=== PATIENT | male | born 1945 | race Two or more races ===

== ENCOUNTER 2016-08-15 19:14 | Emergency (ER) | payer MEDICARE, OTHER ==
[~2016-08-15] VITALS: Ht 177.8 cm; Wt 86.2 kg
[~2016-08-15 19:14] MED LIST: ACET500T68 PO; ALPR0.254 PO; CEPH-264 PO; CIPR250T30 PO; CIPR500T94 PO; CRAN200C PO; LEVE500T6 PO; NITR100C6 PO; SULF1TAB24 PO; SULF1TAB3 PO; TAMS0.4C97 PO; TOPI25TA32 PO
[2016-08-15 20:41] LABS: BASO % 0 % (0-3); EOS % 0 % (0-3); HEMATOCRIT 37.2 % (39.0-53.0); HEMOGLOBIN 12.2 g/dL (13.0-17.5); LYMPH # 1.9 x10^3/uL (1.0-4.8); LYMPH % 33 % (24-48); MEAN CORPUSCULAR HEMOGLOBIN 29 pg (25-35); MEAN CORPUSCULAR HGB CONC 33 g/dL (31-37); MEAN CORPUSCULAR VOLUME 88 fL (79-100); MONO % 8 % (0-9); NEUT % 59 % (31-73); PLATELET COUNT 136 x10^3/uL (140-400); RED BLOOD COUNT 4.24 x10^6/uL (4.30-5.70); RED CELL DISTRIBUTION WIDTH 15.2 % (11.5-14.5); WHITE BLOOD COUNT 5.8 x10^3/uL (4.0-11.0)
[2016-08-15 20:49] LABS: PROTHROMBIN TIME PATIENT 12.4 SEC (11.7-14.0)
--- NOTE | 2016-08-15 21:15 | RAD ---
PROCEDURE CT head without contrast. HISTORY Altered mental status. History of stroke. TECHNIQUE Helical CT imaging of the brain is performed without IV contrast. PQRS: One or more the following individualized dose reduction techniques were utilized for the study: 1. Automated exposure control. 2. Adjustment of the mA and/or kV according to patient size. 3. Use of iterative reconstruction technique. COMPARISON CT head without contrast, February 15, 2015. FINDINGS There is no midline shift or mass effect. No extra-axial fluid collection or intraparenchymal hemorrhage. Singleton-white matter differentiation is preserved. The ventricles and sulci are prominent, consistent with age-related cerebral atrophy. There is periventricular white matter hypoattenuation, nonspecific but commonly due to chronic small vessel ischemic disease in a patient of this age. There is cerebellar atrophy. The visualized paranasal sinuses and mastoid air cells are clear. The globes and orbits appear intact. No acute calvarial abnormality. IMPRESSION No acute intracranial abnormality. Electronically signed by: Esvin Snow MD (Aug 15, 2016 21:13:13)
[2016-08-15 21:47] LABS: CALCIUM 8.3 mg/dL (8.5-10.1); GFR 73.9; POTASSIUM 3.5 mmol/L (3.5-5.1)
[2016-08-15 21:52] LABS: ALBUMIN 3.4 g/dL (3.4-5.0); ALBUMIN/GLOBULIN RATIO 1.1 (1.0-1.7); TOTAL BILIRUBIN 0.5 mg/dL (0.2-1.0); TOTAL PROTEIN 6.6 g/dL (6.4-8.2)
--- NOTE | 2016-08-15 22:18 | ACF ---
Admission Forms Criteria SEIZURE Clinical Indications for Admission to Inpatient Care (Place 'X' for any and all applicable criteria): Admission is indicated for seizure and ANY ONE of the following(1)(2)(3)(4)(5): [X]I. Inpatient admission required rather than observation care (Also use Seizure: Observation Care Criteria as appropriate) because of ANY ONE of the following: [ ]a) Altered mental status that is severe or persistent [ ]b) New focal neurologic deficit that is severe or persistent [ ]c) Metabolic disorder (eg, hypoglycemia, hyponatremia) that is severe or persistent [X]d) Recurrent seizure [ ]e) Outpatient antiseizure regimen cannot be established (eg , patient cannot tolerate medication, initiation requires inpatient care) [ ]f) Need for ongoing intravenous infusion of antiseizure medication [ ]g) Cardiac arrhythmias of immediate concern [ ]h) Cerebral bleeding, hydrocephalus, or vasospasm monitoring (14) [ ]i) Increased intracranial pressure or cerebral edema monitoring (15) [ ]j) Other treatment or monitoring requiring inpatient admission [ ]II. Status epilepticus [A] or repetitive seizures not controlled with emergent treatment (6)(8) [ ]III. Brain disorder (eg, tumor, edema, and hydrocephalus) that requiring monitoring or intervention available only at inpatient level of care. [ ]IV. Brain insult (eg, severe trauma, stroke, drug toxicity, or withdrawal) that requires monitoring or intervention available only at inpatient level of care (10)(11) Extended stay beyond goal length of stay may be needed for (22) [ ]a) Complications of status epilepticus [ ]b) Refractory status epilepticus [ ]c) Etiology-specific therapy for conditions such as VERIFYING SPECIALIST infection, head injury,eclampsia, severe metabolic abnormalities, and brain tumor [ ]d) Residual neurologic damage, [ ]e) Initiation of significant change to anticonvulsant treatment [ ]f) Older patients (65 years or older) [ ]g) Patient requiring intubation (eg, to protect airway) The original [employer] content created by [employer] has been revised. The portions of the content which have been revised are identified through the use of italic text or in bold, and [facility] [employer] has neither reviewed nor approved the modified material. All other unmodified content is copyright [facility] [employer]. Please see references footnoted in the original [facility] edition 2016 Admission Criteria Met?: Yes COREY DAVILA Aug 15, 2016 22:18
[2016-08-15 22:54] VITALS: BP 180/84
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
--- NOTE | 2016-08-15 23:04 | EKG ---
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
== END 2016-08-15 23:15 | disposition home or self-care (01) ==
LOC: ER 19:14
DX: F41.9 Anxiety disorder, unspecified (principal); F03.90 Unspecified dementia, unspecified severity, without behavioral disturbance, psychotic disturbance, mood disturbance, and anxiety; Z86.73 Personal history of transient ischemic attack (TIA), and cerebral infarction without residual deficits; Z91.041 Radiographic dye allergy status
CPT/HCPCS: 36415; 70450; 80053; 85027; 85610; 93005; 99285-25

== ENCOUNTER 2016-09-23 17:39 | Emergency (ER) | payer MEDICARE, OTHER ==
[2016-09-23] MEDS ORDERED: IV NORMAL SALINE 500ML BAG 500 ML IV ONE (18:45)
[2016-09-23] MEDS ORDERED: MECLIZINE HCL 12.5 MG TABLET. PO ONE (18:45)
[2016-09-23 18:54] LABS: BASO % 1 % (0-3); EOS % 0 % (0-3); HEMATOCRIT 36.4 % (39.0-53.0); HEMOGLOBIN 12.1 g/dL (13.0-17.5); LYMPH # 1.5 x10^3/uL (1.0-4.8); LYMPH % 28 % (24-48); MEAN CORPUSCULAR HEMOGLOBIN 29 pg (25-35); MEAN CORPUSCULAR HGB CONC 33 g/dL (31-37); MEAN CORPUSCULAR VOLUME 88 fL (79-100); MONO % 10 % (0-9); NEUT % 62 % (31-73); PLATELET COUNT 97 x10^3/uL (140-400); RED BLOOD COUNT 4.13 x10^6/uL (4.30-5.70); WHITE BLOOD COUNT 5.3 x10^3/uL (4.0-11.0)
[2016-09-23 19:08] LABS: CALCIUM 8.7 mg/dL (8.5-10.1); CREATININE 0.9 mg/dL (0.7-1.3); GFR 83.4; POTASSIUM 3.7 mmol/L (3.5-5.1)
--- NOTE | 2016-09-23 19:25 | RAD ---
PROCEDURE CT head without contrast dated 09/23/2016. HISTORY Dizziness tonite. History of stroke. TECHNIQUE Contiguous axial imaging of the head was performed from skull base to vertex. No contrast administered.Exposure: One or more of the following individualized dose reduction techniques were utilized for this exam: 1. Automated exposure control. 2. Adjustment of the mA and/or kV according to patient size. 3. Use of iterative reconstruction technique. COMPARISON 08/15/2016. FINDINGS Ventricles and sulci mildly prominent for age. No midline shift or mass effect. Mild patchy low density in the deep/subcortical periventricular white matter. No hemorrhage or extra-axial collection. Severe cerebellar atrophy, unchanged. Visualized. Mild mucosal thickening bilateral ethmoid air cells and right maxillary sinus. Visualized paranasal sinuses and mastoid air cells are otherwise clear. No acute calvarial abnormality. IMPRESSION - No evidence of acute intracranial hemorrhage or mass. - Mild to moderate chronic small vessel ischemic changes and atrophy. - Moderate to severe cerebellar atrophy. - Mild sinus disease. Electronically signed by: Luiz Marsh (September 23, 2016 19:24:05)
[2016-09-23 20:12] VITALS: BP 179/84
[2016-09-23] MEDS ORDERED: MECL25TA3 PO (20:18)
--- NOTE | 2016-09-23 20:18 | PHYS DOC ---
Past Medical History Past Medical History: CVA, Dementia, Seizure, Stroke, Other Additional Past Medical Histor: RIGHT SIDE DEFICITS R/T CVA Past Surgical History: Appendectomy, Cholecystectomy, Tonsillectomy, Other Additional Past Surgical Histo: PEG TUBE Alcohol Use: None Drug Use: None Adult General Chief Complaint Chief Complaint: DIZZY/LIGHT HEADED HPI HPI Patient is a 71 year old male with chronic right hemiparalysis who presents with female significant other for intermittent dizziness that started this afternoon after sitting outside for most of the day. It happens when he changes positions. He denies headache, vision changes, numbness, tingling, weakness. Feels abnormal spinning sensation. Denies ear pain, tinnitus, n/v, f/ c, trauma, chest pain, dyspnea, abdominal pain. Review of Systems Review of Systems Constitutional: Denies fever or chills [] Eyes: Denies change in visual acuity, redness, or eye pain [] HENT: Denies nasal congestion or sore throat [] Respiratory: Denies cough or shortness of breath [] Cardiovascular: No additional information not addressed in HPI [] GI: Denies abdominal pain, nausea, vomiting, bloody stools or diarrhea [] : Denies dysuria or hematuria [] Musculoskeletal: Denies back pain or joint pain [] Integument: Denies rash or skin lesions [] Neurologic: Denies headache, focal weakness or sensory changes [] Endocrine: Denies polyuria or polydipsia [] Current Medications Current Medications Current Medications Medications (Trade) Dose Ordered Sig/Mackenzie Start Time Stop Time Status Last Admin Dose Admin Acetaminophen (Tylenol) 500 mg 1X ONCE 09/23/16 20:30 09/23/16 20:31 DC Meclizine HCl (Antivert) 25 mg 1X ONCE 09/23/16 18:45 09/23/16 18:46 DC 09/23/16 19:15 25 MG Sodium Chloride 500 ml @ 500 mls/hr 1X ONCE 09/23/16 18:45 09/23/16 19:44 DC 09/23/16 19:18 500 MLS/HR Allergies Allergies Allergies Coded Allergies Type Severity Reaction Last Updated Verified iodine Allergy Severe IV IODINE CAUSED A SEIZURE 02/01/16 Yes Physical Exam Physical Exam Constitutional: Well developed, well nourished, no acute distress, non-toxic appearance. [] HENT: Normocephalic, atraumatic, bilateral external ears normal, oropharynx moist, nose normal. [] Eyes: PERRLA, EOMI. [] Neck: Normal range of motion, supple. [] Cardiovascular: Heart rate regular rhythm [] Lungs & Thorax: Bilateral breath sounds clear to auscultation [] Abdomen: Bowel sounds normal, soft, no tenderness. [] Skin: Warm, dry, no erythema, no rash. [] Back: Normal ROM. [] Extremities: No tenderness, ROM intact, no edema. [] Neurologic: Alert and oriented X 3, normal sensory function, right hemiparesis, no nystagmus. [] Psychologic: Affect normal, judgement normal, mood normal. [] Current Patient Data Vital Signs Vital Signs Date Time Temp Pulse Resp B/P (MAP) Pulse Ox O2 Delivery O2 Flow Rate FiO2 09/23/16 20:12 44 17 179/84 (115) 98 Room Air 09/23/16 17:39 98.4 98.4 Lab Values Laboratory Tests Test 09/23/16 18:40 White Blood Count 5.3 x10^3/uL (4.0-11.0) Red Blood Count 4.13 x10^6/uL (4.30-5.70) L Hemoglobin 12.1 g/dL (13.0-17.5) L Hematocrit 36.4 % (39.0-53.0) L Mean Corpuscular Volume 88 fL (79-100) Mean Corpuscular Hemoglobin 29 pg (25-35) Mean Corpuscular Hemoglobin Concent 33 g/dL (31-37) Red Cell Distribution Width 15.0 % (11.5-14.5) H Platelet Count 97 x10^3/uL (140-400) L Neutrophils (%) (Auto) 62 % (31-73) Lymphocytes (%) (Auto) 28 % (24-48) Monocytes (%) (Auto) 10 % (0-9) H Eosinophils (%) (Auto) 0 % (0-3) Basophils (%) (Auto) 1 % (0-3) Neutrophils # (Auto) 3.3 x10^3uL (1.8-7.7) Lymphocytes # (Auto) 1.5 x10^3/uL (1.0-4.8) Monocytes # (Auto) 0.5 x10^3/uL (0.0-1.1) Eosinophils # (Auto) 0.0 x10^3/uL (0.0-0.7) Basophils # (Auto) 0.0 x10^3/uL (0.0-0.2) Sodium Level 142 mmol/L (136-145) Potassium Level 3.7 mmol/L (3.5-5.1) Chloride Level 104 mmol/L (98-107) Carbon Dioxide Level 32 mmol/L (21-32) Anion Gap 6 (6-14) Blood Urea Nitrogen 15 mg/dL (8-26) Creatinine 0.9 mg/dL (0.7-1.3) Estimated GFR (Cockcroft-Gault) 83.4 Glucose Level 90 mg/dL (70-99) Calcium Level 8.7 mg/dL (8.5-10.1) Laboratory Tests 09/23/16 18:40 Laboratory Tests 09/23/16 18:40 EKG EKG EKG as interpreted by me as sinus rhythm with right bundle branch block, rate 46 , no ectopy Radiology/Procedures Radiology/Procedures Head CT without contrast IMPRESSION - No evidence of acute intracranial hemorrhage or mass. - Mild to moderate chronic small vessel ischemic changes and atrophy. - Moderate to severe cerebellar atrophy. - Mild sinus disease. Electronically signed by: Luiz Marsh (September 23, 2016 19:24:05) Course & Med Decision Making Course & Med Decision Making Pertinent Labs and Imaging studies reviewed. (See chart for details) Workup is unremarkable. His symptoms are resolved after medications. Return precautions given. He and family understand and agree with plan. Dragon Disclaimer Dragguadalupe Disclaimer This electronic medical record was generated, in whole or in part, using a voice recognition dictation system. Departure Departure Impression: Primary Impression: Dizziness Disposition: 01 HOME, SELF-CARE Condition: STABLE Referrals: LUIZ OBREGON MD (PCP) Patient Instructions: Dizziness, [id number] Additional Instructions: Drink liquids to stay hydrated. Take meclizine as needed for dizziness. Follow- up with your primary care doctor and neurology clinic within one week. Please call for appointments. Return for any concerns. Scripts Meclizine Hcl (MECLIZINE HCL) 25 Mg Tablet 1 TAB PO PRN TID Y for DIZZINESS, #10 TAB Prov: Iraida HANNA MD 09/23/16 Iraida HANNA MD September 23, 2016 20:18
[2016-09-23] MEDS ORDERED: ACETAMINOPHEN 500 MG TABLET PO ONE (20:30)
--- NOTE | 2016-09-24 10:05 | EKG ---
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
== END 2016-09-23 20:35 | disposition home or self-care (01) ==
LOC: ER 20:23
DX: R42 Dizziness and giddiness (principal); F03.90 Unspecified dementia, unspecified severity, without behavioral disturbance, psychotic disturbance, mood disturbance, and anxiety; Z86.73 Personal history of transient ischemic attack (TIA), and cerebral infarction without residual deficits; Z91.041 Radiographic dye allergy status
CPT/HCPCS: 36415; 70450; 80048; 85027; 93005; 96360; 99285; J7040; J8597

== ENCOUNTER 2016-09-25 17:08 | Emergency (ER) | payer MEDICARE, OTHER ==
[~2016-09-25] VITALS: Ht 175.3 cm; Wt 86.2 kg
[~2016-09-25 17:08] MED LIST changes: -CRAN200C PO; +CRAN200C2 PO; +MECL25TA3 PO; +SULF-143 PO; -SULF1TAB3 PO; -TOPI25TA32 PO; +TOPI25TA52 PO
--- NOTE | 2016-09-25 17:53 | PHYS DOC ---
Past Medical History Past Medical History: CVA, Dementia, Seizure, Stroke, Other Additional Past Medical Histor: RIGHT SIDE DEFICITS R/T CVA Past Surgical History: Appendectomy, Cholecystectomy, Tonsillectomy, Other Additional Past Surgical Histo: PEG TUBE s/p removal Alcohol Use: None Drug Use: None Adult General Chief Complaint Chief Complaint: OTHER COMPLAINTS [facility] HPI Patient is a 71 year old male who presents by EMS with for agitation. He went to sit next to the street, but family told him "no". He then became agitated and started trying to throw himself out of his wheelchair. notes he actually just slid out of his wheelchair to the ground and did not appear to have hurt himself. He was on the ground and did not let them help him up, so EMS was called. He has now called down. She does note he had a small blood smear on his adult diaper and will like his urine checked for infection. He has no complaints at this time. Otherwise states dizziness is resolved from prior visit. Review of Systems Review of Systems Constitutional: Denies fever or chills [] Eyes: Denies change in visual acuity, redness, or eye pain [] HENT: Denies nasal congestion or sore throat [] Respiratory: Denies cough or shortness of breath [] Cardiovascular: No additional information not addressed in HPI [] GI: Denies abdominal pain, nausea, vomiting, bloody stools or diarrhea [] : Denies dysuria or hematuria [] Musculoskeletal: Denies back pain or joint pain [] Integument: Denies rash or skin lesions [] Neurologic: Denies headache, focal weakness or sensory changes [] Endocrine: Denies polyuria or polydipsia [] Allergies Allergies Allergies Coded Allergies Type Severity Reaction Last Updated Verified iodine Allergy Severe IV IODINE CAUSED A SEIZURE 02/01/16 Yes Physical Exam Physical Exam Constitutional: Well developed, well nourished, no acute distress, non-toxic appearance. [] HENT: Normocephalic, atraumatic, bilateral external ears normal, oropharynx moist, no oral exudates, nose normal. [] Eyes: PERRLA, EOMI. [] Neck: Normal range of motion, supple. [] Cardiovascular:Heart rate regular rhythm [] Lungs & Thorax: Bilateral breath sounds clear to auscultation. No chest wall tenderness [] Abdomen: Bowel sounds normal, soft, no tenderness. [] Skin: Warm, dry, no erythema, no rash. [] Back: No tenderness, no CVA tenderness. [] Extremities: No tenderness, no deformity. [] Neurologic: Alert and oriented to self and situation, chronic right sided hemiparalysis. [] Psychologic: Affect normal, judgement normal, mood normal. [] Current Patient Data Vital Signs Vital Signs Date Time Temp Pulse Resp B/P (MAP) Pulse Ox O2 Delivery O2 Flow Rate FiO2 09/25/16 17:10 97.3 56 18 138/66 (90) 97 Room Air 97.3 Lab Values Laboratory Tests Test 09/25/16 18:10 Urine Collection Type Unknown Urine Color Yellow Urine Clarity Clear Urine pH 6.5 Urine Specific [place] <=1.005 Urine Protein Negative mg/dL (NEG-TRACE) Urine Glucose (UA) Negative mg/dL (NEG) Urine Ketones (Stick) Negative mg/dL (NEG) Urine Blood Moderate (NEG) Urine Nitrite Positive (NEG) Urine Bilirubin Negative (NEG) Urine Urobilinogen Dipstick 0.2 mg/dL (0.2 mg/dL) Urine Leukocyte Esterase Large (NEG) Urine RBC 1-2 /HPF (0-2) Urine WBC 11-20 /HPF (0-4) Urine Squamous Epithelial Cells Occ /LPF Urine Bacteria Moderate /HPF (0-FEW) Course & Med Decision Making Course & Med Decision Making Pertinent Labs and Imaging studies reviewed. (See chart for details) Urine consistent with UTI. Will treat. Otherwise, he has no signs of agitation here. comfortable taking him home. Return precautions given. She understands and agrees with plan. Dragon Disclaimer Dragon Disclaimer This electronic medical record was generated, in whole or in part, using a voice recognition dictation system. Departure Departure Impression: Primary Impression: Agitation Additional Impression: UTI (lower urinary tract infection) Disposition: 01 HOME, SELF-CARE Condition: STABLE Referrals: JH OBREGON MD (PCP) Patient Instructions: Urinary Tract Infection, [id number] Additional Instructions: Take ciprofloxacin as prescribed. Otherwise continue your current medications. Follow-up with your primary care doctor within one week. Return for any concerns. Scripts Ciprofloxacin Hcl (CIPROFLOXACIN HCL) 500 Mg Tablet 1 TAB PO BID, #14 TAB Prov: Iraida HANNA MD 09/25/16 Problem Qualifiers Iraida HANNA MD September 25, 2016 17:53
[2016-09-25 19:06] LABS: BILIRUBIN,URINE NEGATIVE (NEG); GLUCOSE,URINE NEGATIVE (NEG); NITRITE,URINE POSITIVE (NEG); PH,URINE 6.5; PROTEIN,URINE NEGATIVE (NEG-TRACE); UROBILINOGEN,URINE 0.2 mg/dL (0.2 mg/dL)
[2016-09-25 19:33] LABS: BACTERIA,URINE MODERATE /HPF (0-FEW); SQUAMOUS EPITHELIAL CELL,UR OCC /LPF
[2016-09-25] MEDS ORDERED: CIPR500T PO (19:40)
[2016-09-25 19:42] VITALS: BP 192/84
== END 2016-09-25 19:55 | disposition home or self-care (01) ==
LOC: ER 17:58
DX: R45.1 Restlessness and agitation (principal); N39.0 Urinary tract infection, site not specified; F03.90 Unspecified dementia, unspecified severity, without behavioral disturbance, psychotic disturbance, mood disturbance, and anxiety; Z86.73 Personal history of transient ischemic attack (TIA), and cerebral infarction without residual deficits; Z88.8 Allergy status to other drugs, medicaments and biological substances
CPT/HCPCS: 81001; 87086; 87186; 99284; P9612

== ENCOUNTER 2016-11-12 15:25 | Inpatient (IN) | payer MEDICARE, OTHER ==
[~2016-11-12] VITALS: Ht 172.7 cm; Wt 118.8 kg
[~2016-11-12 15:25] MED LIST changes: +CIPR500T PO
[2016-11-12] MEDS ORDERED: IV NORMAL SALINE 1000ML BAG 1,000 ML IV SCH (15:54)
[2016-11-12] MEDS ORDERED: IV NORMAL SALINE 500ML BAG 500 ML IV ONE (16:00)
[2016-11-12 16:34] LABS: BASO % 0 % (0-3); EOS % 0 % (0-3); HEMATOCRIT 36.9 % (39.0-53.0); HEMOGLOBIN 12.2 g/dL (13.0-17.5); LYMPH # 1.3 x10^3/uL (1.0-4.8); LYMPH % 29 % (24-48); MEAN CORPUSCULAR HEMOGLOBIN 29 pg (25-35); MEAN CORPUSCULAR HGB CONC 33 g/dL (31-37); MEAN CORPUSCULAR VOLUME 88 fL (79-100); MONO % 9 % (0-9); NEUT % 62 % (31-73); PLATELET COUNT 90 x10^3/uL (140-400); RED BLOOD COUNT 4.21 x10^6/uL (4.30-5.70); RED CELL DISTRIBUTION WIDTH 14.5 % (11.5-14.5); WHITE BLOOD COUNT 4.6 x10^3/uL (4.0-11.0)
[2016-11-12 16:48] LABS: CALCIUM 9.1 mg/dL (8.5-10.1); CREATININE 0.8 mg/dL (0.7-1.3); GFR 95.6; POTASSIUM 4.2 mmol/L (3.5-5.1)
[2016-11-12 16:54] LABS: ALBUMIN 3.5 g/dL (3.4-5.0); ALBUMIN/GLOBULIN RATIO 1.1 (1.0-1.7); TOTAL BILIRUBIN 0.5 mg/dL (0.2-1.0); TOTAL PROTEIN 6.8 g/dL (6.4-8.2)
[2016-11-12 17:07] LABS: BILIRUBIN,URINE NEGATIVE (NEG); GLUCOSE,URINE NEGATIVE (NEG); NITRITE,URINE POSITIVE (NEG); PH,URINE 6.5; PROTEIN,URINE NEGATIVE (NEG-TRACE); UROBILINOGEN,URINE 0.2 mg/dL (0.2 mg/dL)
[2016-11-12 17:18] LABS: BACTERIA,URINE MANY /HPF (0-FEW); WBC,URINE TNTC /HPF (0-4)
--- NOTE | 2016-11-12 17:33 | RAD ---
CT head without contrast HISTORY: Altered mental status, confusion. COMPARISON: CT head September 23, 2016. TECHNIQUE: [address] imaging skull base to vertex. FINDINGS: Marked cerebellar atrophy with lesser atrophy of the midbrain, yolanda of brainstem similar to the prior exam can be observed with chronic alcohol abuse, chronic antiepileptic therapy, or some neurodegenerative disorders. There is mild asymmetric enlargement of the frontal horns relative to the rest of the lateral and third ventricles this could be ex vacuo dilation of the frontal horns from preferential frontal lobe atrophy, similar to the prior exam. No obstructive hydrocephalus. No intracranial hemorrhage. No mass. No infarction. No acute ischemic changes evident. Orbits, paranasal sinuses, mastoids and bones are unremarkable. IMPRESSION: No acute intracranial CT abnormality. Stable exam as described above. Exposure: One or more of the following individualized dose reduction techniques were utilized for this examination: 1. Automated exposure control 2. Adjustment of the mA and/or kV according to patient size 3. Use of iterative reconstruction technique Electronically signed by: Jesus Alberto Amaya MD (11/12/2016 5:29 PM) [facility]
--- NOTE | 2016-11-12 17:40 | PHYS DOC ---
Past Medical History Past Medical History: CVA, Dementia, Seizure, Stroke, Other Additional Past Medical Histor: RIGHT SIDE DEFICITS R/T CVA Past Surgical History: Appendectomy, Cholecystectomy, Tonsillectomy, Other Additional Past Surgical Histo: PEG TUBE s/p removal Alcohol Use: None Drug Use: None Adult General Chief Complaint Chief Complaint: OTHER COMPLAINTS HPI HPI 71-year-old male with a history of prior severe stroke with right-sided hemiparesis as a residual deficit as well as significant challenge with his speech as his new baseline poststroke. Patient now brought in by for evaluation of confusion after being outside in the heat today. Patient does have Alzheimer's disease in addition to his previous severe stroke. states is not unusual for him to have episodes of confusion and he had one after being out in the sun today. He has now returned to his mental status baseline and has no complaints. He is alert and communicative as he typically is by her description. No fevers chills sweats or shaking chills. No vomiting or diarrhea. Patient is alert and cooperative at his baseline per . She was concerned so she brought him in to get checked out Review of Systems Review of Systems Constitutional: Denies fever or chills [] Eyes: Denies change in visual acuity, redness, or eye pain [] HENT: Denies nasal congestion or sore throat [] Respiratory: Denies cough or shortness of breath [] Cardiovascular: No additional information not addressed in HPI [] GI: Denies abdominal pain, nausea, vomiting, bloody stools or diarrhea [] : Denies dysuria or hematuria [] Musculoskeletal: Denies back pain or joint pain [] Integument: Denies rash or skin lesions [] Neurologic: Denies headache, focal weakness or sensory changes [] Endocrine: Denies polyuria or polydipsia [] Current Medications Current Medications Current Medications Medications (Trade) Dose Ordered Sig/Mackenzie Start Time Stop Time Status Last Admin Dose Admin Ceftriaxone Sodium 50 ml @ As Directed STK-MED ONCE 11/12/16 19:38 11/12/16 19:39 DC Sodium Chloride 500 ml @ 500 mls/hr 1X ONCE 11/12/16 16:00 11/12/16 16:59 DC 11/12/16 16:24 500 MLS/HR Allergies Allergies Allergies Coded Allergies Type Severity Reaction Last Updated Verified iodine Allergy Severe IV IODINE CAUSED A SEIZURE 02/01/16 Yes Physical Exam Physical Exam Elderly chronically weak-appearing male in no acute distress alert and communicative with dysarthria which is baseline per . He is cooperative with formal neurologic exam and has severe weakness of the right upper and right lower extremity consistent with his katherine-paresis baseline. Supple neck clear lungs regular rate and rhythm benign abdomen no rashes. Constitutional: Well developed, well nourished, no acute distress, non-toxic appearance. [] HENT: Normocephalic, atraumatic, bilateral external ears normal, oropharynx moist, no oral exudates, nose normal. [] Eyes: PERRLA, EOMI, conjunctiva normal, no discharge. [] Neck: Normal range of motion, no tenderness, supple, no stridor. [] Cardiovascular:Heart rate regular rhythm, no murmur [] Lungs & Thorax: Bilateral breath sounds clear to auscultation [] Abdomen: Bowel sounds normal, soft, no tenderness, no masses, no pulsatile masses. [] Skin: Warm, dry, no erythema, no rash. [] Back: No tenderness, no CVA tenderness. [] Extremities: No tenderness, no cyanosis, no clubbing, ROM intact, no edema. [] Neurologic: Alert and oriented with mild confusion, baseline per left side with normal motor function right sided weakness baseline unchanged per as mentioned above, normal sensory function Psychologic: Affect normal, judgement normal, mood normal. [] Current Patient Data Vital Signs Vital Signs Date Time Temp Pulse Resp B/P (MAP) Pulse Ox O2 Delivery O2 Flow Rate FiO2 11/12/16 19:30 47 226/98 (140) 97 11/12/16 16:28 14 11/12/16 15:25 98.1 Room Air 98.1 Lab Values Laboratory Tests Test 11/12/16 16:28 11/12/16 16:44 White Blood Count 4.6 x10^3/uL (4.0-11.0) Red Blood Count 4.21 x10^6/uL (4.30-5.70) L Hemoglobin 12.2 g/dL (13.0-17.5) L Hematocrit 36.9 % (39.0-53.0) L Mean Corpuscular Volume 88 fL (79-100) Mean Corpuscular Hemoglobin 29 pg (25-35) Mean Corpuscular Hemoglobin Concent 33 g/dL (31-37) Red Cell Distribution Width 14.5 % (11.5-14.5) Platelet Count 90 x10^3/uL (140-400) L Neutrophils (%) (Auto) 62 % (31-73) Lymphocytes (%) (Auto) 29 % (24-48) Monocytes (%) (Auto) 9 % (0-9) Eosinophils (%) (Auto) 0 % (0-3) Basophils (%) (Auto) 0 % (0-3) Neutrophils # (Auto) 2.9 x10^3uL (1.8-7.7) Lymphocytes # (Auto) 1.3 x10^3/uL (1.0-4.8) Monocytes # (Auto) 0.4 x10^3/uL (0.0-1.1) Eosinophils # (Auto) 0.0 x10^3/uL (0.0-0.7) Basophils # (Auto) 0.0 x10^3/uL (0.0-0.2) Sodium Level 143 mmol/L (136-145) Potassium Level 4.2 mmol/L (3.5-5.1) Chloride Level 105 mmol/L (98-107) Carbon Dioxide Level 33 mmol/L (21-32) H Anion Gap 5 (6-14) L Blood Urea Nitrogen 16 mg/dL (8-26) Creatinine 0.8 mg/dL (0.7-1.3) Estimated GFR (Cockcroft-Gault) 95.6 BUN/Creatinine Ratio 20 (6-20) Glucose Level 94 mg/dL (70-99) Calcium Level 9.1 mg/dL (8.5-10.1) Total Bilirubin 0.5 mg/dL (0.2-1.0) Aspartate Amino Transferase (AST) 21 U/L (15-37) Alanine Aminotransferase (ALT) 27 U/L (16-63) Alkaline Phosphatase 74 U/L (46-116) Troponin I Quantitative < 0.017 ng/mL (0.000-0.055) Total Protein 6.8 g/dL (6.4-8.2) Albumin 3.5 g/dL (3.4-5.0) Albumin/Globulin Ratio 1.1 (1.0-1.7) Thyroid Stimulating Hormone (TSH) 1.586 uIU/mL (0.358-3.74) Urine Collection Type Unknown Urine Color Yellow Urine Clarity Clear Urine pH 6.5 Urine Specific [place] <=1.005 Urine Protein Negative mg/dL (NEG-TRACE) Urine Glucose (UA) Negative mg/dL (NEG) Urine Ketones (Stick) Negative mg/dL (NEG) Urine Blood Small (NEG) Urine Nitrite Positive (NEG) Urine Bilirubin Negative (NEG) Urine Urobilinogen Dipstick 0.2 mg/dL (0.2 mg/dL) Urine Leukocyte Esterase Large (NEG) Urine RBC 3-5 /HPF (0-2) Urine WBC Tntc /HPF (0-4) Urine Bacteria Many /HPF (0-FEW) Laboratory Tests 11/12/16 16:28 Laboratory Tests 11/12/16 16:28 Microbiology 11/12/16 Urine Culture - Preliminary, Resulted 11/12/16 Urine Culture Result 1 (PETER) - Preliminary, Resulted EKG EKG EKG with normal sinus rhythm at 46 bpm normal axis no STEMI right bundle branch block [] Radiology/Procedures Radiology/Procedures Chest x-ray chronic changes no acute disease interpreted by me CT of the head unremarkable report reviewed Course & Med Decision Making Course & Med Decision Making Pertinent Labs and Imaging studies reviewed. (See chart for details) Signs and symptoms consistent with exacerbation of dementia in an elderly debilitated patient with a baseline of hemiparesis and dysarthria. He has returned to his baseline clinically per . Full workup pending to rule out contributory etiology Chest x-ray and CT of the head unremarkable. Urinalysis consistent with infection. Remainder of labs unremarkable. Rocephin given in ED.Patient had bradycardia at 46 on EKG and remains significantly bradycardic in the 40s on multiple reevaluation. He is asymptomatic at rest but will admit patient medical telemetry bed inpatient status for cardiac workup of presumed symptomatic bradycardia. Case discussed with Dr. Luiz Razo who is aware of history and findings and agrees with inpatient admission to a telemetry bed. Critical care 33 minutes Dragon Disclaimer Dragon Disclaimer This electronic medical record was generated, in whole or in part, using a voice recognition dictation system. Departure Departure Impression: Primary Impression: Symptomatic sinus bradycardia Additional Impression: UTI (urinary tract infection) Disposition: ADMITTED INPATIENT Admitting Physician: Any Caba Condition: STABLE Referrals: LUIZ RAZO MD (PCP) Problem Qualifiers LUIZ MAR MD Nov 12, 2016 17:40
[2016-11-12 21:00] VITALS: BP 177/92
[2016-11-12 23:00] VITALS: BP 159/77
[2016-11-13 03:06] VITALS: BP 144/82
[2016-11-13 07:00] VITALS: BP 163/87
--- NOTE | 2016-11-13 07:08 | PDOC2 ---
CARDIOLOGY CONSULT NOTE CHEIF COMPLAINT: Confusion Problems: HPI: 71 y.o debilitated male presenting for confusion per family. Noted to have some bradycardia in the ER and so cardiology was consulted. At baseline due to prior stroke and dementia, patient is significantly impaired with respect to communication. He apparently was transiently confused while out in the heat yesterday. No chest pain, syncope. No dyspnea at baseline. PMHX: Stroke Alzeihmers SOCHX: Lives with . FAMHX: Non contributory CURRENT MEDS: Current Medications Medications (Trade) Dose Ordered Sig/Mackenzie Start Time Stop Time Status Last Admin Dose Admin Ceftriaxone Sodium 50 ml @ As Directed STK-MED ONCE 11/12/16 19:38 11/12/16 19:39 DC Sodium Chloride 500 ml @ 500 mls/hr 1X ONCE 11/12/16 16:00 11/12/16 16:59 DC 11/12/16 16:24 500 MLS/HR ALLERGIES: Allergies Coded Allergies Type Severity Reaction Last Updated Verified iodine Allergy Severe IV IODINE CAUSED A SEIZURE 02/01/16 Yes ROS: Negative for 02/18 systems reviewed unless otherwise noted above in HPI. PHYSICAL EXAM: Vital Signs: Vital Signs Date Time Temp Pulse Resp B/P (MAP) Pulse Ox O2 Delivery O2 Flow Rate FiO2 11/13/16 03:06 97.7 44 50 144/82 (102) 98 Room Air 97.7 I & O +860ml Physical Exam: GEN.: No apparent distress. HEENT: Head is normocephalic, atraumatic NECK: Supple. LUNGS: Clear to auscultation. HEART: RRR, S1, S2 present. Peripheral pulses intact ABDOMEN: Soft, nontender. Positive bowel sounds. EXTREMITIES: Without any cyanosis. NEUROLOGIC: R sided weakness. PSYCHIATRIC: Not assessed SKIN: No ulcerations DIAGNOSTIC TESTING: EKG - Sinus bradycardia - His two previous EKGs have also been sinus bradycardia. Lab +UTI ASSESSMENT: 1. Asymptomatic bradycardia - not the source of his confusion. 2. UTI PLAN: 1. Supportive care from CV perspective. If he has any significant hypotension after treatment of UTI or if he has any syncope/LH, could then consider further evaluation for outpt monitoring. 2. Given the patient's debilitated state, would recommend conservative mgmt. Thanks for consult NANCY PARKER MD Nov 13, 2016 07:08
--- NOTE | 2016-11-13 09:12 | RAD ---
Examination: Single frontal view the chest History: History of right-sided weakness Comparison: 02/01/2016 Findings: The cardiomediastinal silhouette grossly appears unremarkable. There is no acute infiltrate or visualized pneumothorax. Impression: No acute cardiopulmonary findings.
[2016-11-13 11:00] VITALS: BP 182/90
[2016-11-13] MEDS ORDERED: ACETAMINOPHEN 500 MG TABLET PO PRN (11:00)
--- NOTE | 2016-11-13 11:11 | PDOC1 ---
History and Physical Date of Admission Date of Admission DATE: 11/12/16 Identification/Chief Complaint Chief Complaint Change in mental status. Problems: History of Present Illness History of Present Illness Patient is a 71 year old male with a history of previous CVA and significant residual hemiparesis and aphasia. He was brought to the ER from home with the above complaint. His reported that he had spent several hours outside on the afternoon of admission. He had been in the shade but it was still very warm outside. He did not want to come in the house when his felt he should and seemed confused and not thinking clearly. When this persisted she brought him to the ER. Initial evaluation there included a CT head without contrast, which showed only chronic findings. Lab was remarkable for probable UTI with WBC's TNTC. Treatment was started with Rocephin for this. Patient was also found to be bradycardic with a rate in the 40's so he was admitted for further evaluation. Past Medical History Cardiovascular: No pertinent hx Pulmonary: No pertinent hx CENTRAL NERVOUS SYSTEM: CVA, Dementia, Seizure, Other (TBI) GI: No pertinent hx Heme/Onc: No pertinent hx Psych: Depression Musculoskeletal: Other (lumbar spinal stenosis) Renal/: Other (previous UTI's) Past Surgical History Past Surgical History: Appendectomy, Cholecystectomy, Other (vertebroplasty) Family History Family History Noncontributory to present illness Social History Smoke: No ALCOHOL: none Current Problem List Problem List Problems Medical Problems: (1) Symptomatic sinus bradycardia Status: Acute (2) UTI (urinary tract infection) Status: Acute Problems: Current Medications Current Medications Current Medications Sodium Chloride 1,000 ml @ 100 mls/hr Q10H IV Last administered on 11/12/16 17 :39; Start 11/12/16 at 15:54; Stop 11/13/16 at 01:53; Status DC Sodium Chloride 500 ml @ 500 mls/hr 1X ONCE IV Last administered on 11/12/16 16:24; Start 11/12/16 at 16:00; Stop 11/12/16 at 16:59; Status DC Ceftriaxone Sodium 50 ml @ 100 mls/hr ONCE STAT IV Last administered on 19:43; Start 11/12/16 at 19:33; Stop 11/12/16 at 20:02; Status DC Ceftriaxone Sodium 50 ml @ As Directed STK-MED ONCE IV ; Start 11/12/16 at 19:38 ; Stop 11/12/16 at 19:39; Status DC Ceftriaxone Sodium 1 gm/ Sodium Chloride 50 ml @ 100 mls/hr Q24H IV ; Start 11/13/16 at 19:00 Active Scripts Active Reported Cranberry (Cranberry Extract) 200 Mg Capsule Unknown Dose PO BID Acetaminophen 500 Mg Tablet 650 Mg PO Q6HRS PRN Levetiracetam 500 Mg Tablet 1 Tab PO BID LAST DOSE GIVEN: DATE:02-13-15 TIME:9:00 a.m. NEXT DOSE DUE: DATE:02-14-15 TIME:9:00 a.m. Allergies Allergies: Coded Allergies: iodine (Verified Allergy, Severe, IV IODINE CAUSED A SEIZURE, 02/01/16) ROS General: YES: Other (No fevers or chills) PSYCHOLOGICAL ROS: YES: Other (some recent confusion as in HPI) HEENT: YES: Other (occasional headaches, treated with Tylenol as needed) Respiratory: YES: Other (no cough or SOA) Cardiovascular: yes Other (no chest pains) Gastrointestinal: No Nausea, No Vomiting, No Abdominal Pain, No Diarrhea, No Constipation Genitourinary: YES Other (denies dysuria or increased frequency, has not noticed unusual urine odor, chronic incontinence) Musculoskeletal: Yes Other (chronic hemiparesis) Neurological: Yes Other (no recent seizures, same medication for years) Physical Exam General: Alert, Cooperative, No acute distress HEENT: PERRLA, EOMI Lungs: Clear to auscultation Heart: S1S2, no murmurs Abdomen: Normal bowel sounds, Soft, No tenderness Extremities: No edema Neuro: Other (Right hemiparesis. Speech very dysarthric) Vitals Vitals Vital Signs Date Time Temp Pulse Resp B/P (MAP) Pulse Ox O2 Delivery O2 Flow Rate FiO2 11/13/16 07:40 Room Air 11/13/16 07:00 97.8 55 18 163/87 (112) 93 97.8 Labs Labs Laboratory Tests Test 11/12/16 16:28 11/12/16 16:44 White Blood Count 4.6 x10^3/uL (4.0-11.0) Red Blood Count 4.21 x10^6/uL (4.30-5.70) Hemoglobin 12.2 g/dL (13.0-17.5) Hematocrit 36.9 % (39.0-53.0) Mean Corpuscular Volume 88 fL (79-100) Mean Corpuscular Hemoglobin 29 pg (25-35) Mean Corpuscular Hemoglobin Concent 33 g/dL (31-37) Red Cell Distribution Width 14.5 % (11.5-14.5) Platelet Count 90 x10^3/uL (140-400) Neutrophils (%) (Auto) 62 % (31-73) Lymphocytes (%) (Auto) 29 % (24-48) Monocytes (%) (Auto) 9 % (0-9) Eosinophils (%) (Auto) 0 % (0-3) Basophils (%) (Auto) 0 % (0-3) Neutrophils # (Auto) 2.9 x10^3uL (1.8-7.7) Lymphocytes # (Auto) 1.3 x10^3/uL (1.0-4.8) Monocytes # (Auto) 0.4 x10^3/uL (0.0-1.1) Eosinophils # (Auto) 0.0 x10^3/uL (0.0-0.7) Basophils # (Auto) 0.0 x10^3/uL (0.0-0.2) Sodium Level 143 mmol/L (136-145) Potassium Level 4.2 mmol/L (3.5-5.1) Chloride Level 105 mmol/L (98-107) Carbon Dioxide Level 33 mmol/L (21-32) Anion Gap 5 (6-14) Blood Urea Nitrogen 16 mg/dL (8-26) Creatinine 0.8 mg/dL (0.7-1.3) Estimated GFR (Cockcroft-Gault) 95.6 BUN/Creatinine Ratio 20 (6-20) Glucose Level 94 mg/dL (70-99) Calcium Level 9.1 mg/dL (8.5-10.1) Total Bilirubin 0.5 mg/dL (0.2-1.0) Aspartate Amino Transf (AST/SGOT) 21 U/L (15-37) Alanine Aminotransferase (ALT/SGPT) 27 U/L (16-63) Alkaline Phosphatase 74 U/L (46-116) Troponin I Quantitative < 0.017 ng/mL (0.000-0.055) Total Protein 6.8 g/dL (6.4-8.2) Albumin 3.5 g/dL (3.4-5.0) Albumin/Globulin Ratio 1.1 (1.0-1.7) Thyroid Stimulating Hormone (TSH) 1.586 uIU/mL (0.358-3.74) Urine Collection Type Unknown Urine Color Yellow Urine Clarity Clear Urine pH 6.5 Urine Specific [place] <=1.005 Urine Protein Negative mg/dL (NEG-TRACE) Urine Glucose (UA) Negative mg/dL (NEG) Urine Ketones (Stick) Negative mg/dL (NEG) Urine Blood Small (NEG) Urine Nitrite Positive (NEG) Urine Bilirubin Negative (NEG) Urine Urobilinogen Dipstick 0.2 mg/dL (0.2 mg/dL) Urine Leukocyte Esterase Large (NEG) Urine RBC 3-5 /HPF (0-2) Urine WBC Tntc /HPF (0-4) Urine Bacteria Many /HPF (0-FEW) Laboratory Tests Test 11/12/16 16:28 11/12/16 16:44 White Blood Count 4.6 x10^3/uL (4.0-11.0) Red Blood Count 4.21 x10^6/uL (4.30-5.70) Hemoglobin 12.2 g/dL (13.0-17.5) Hematocrit 36.9 % (39.0-53.0) Mean Corpuscular Volume 88 fL (79-100) Mean Corpuscular Hemoglobin 29 pg (25-35) Mean Corpuscular Hemoglobin Concent 33 g/dL (31-37) Red Cell Distribution Width 14.5 % (11.5-14.5) Platelet Count 90 x10^3/uL (140-400) Neutrophils (%) (Auto) 62 % (31-73) Lymphocytes (%) (Auto) 29 % (24-48) Monocytes (%) (Auto) 9 % (0-9) Eosinophils (%) (Auto) 0 % (0-3) Basophils (%) (Auto) 0 % (0-3) Neutrophils # (Auto) 2.9 x10^3uL (1.8-7.7) Lymphocytes # (Auto) 1.3 x10^3/uL (1.0-4.8) Monocytes # (Auto) 0.4 x10^3/uL (0.0-1.1) Eosinophils # (Auto) 0.0 x10^3/uL (0.0-0.7) Basophils # (Auto) 0.0 x10^3/uL (0.0-0.2) Sodium Level 143 mmol/L (136-145) Potassium Level 4.2 mmol/L (3.5-5.1) Chloride Level 105 mmol/L (98-107) Carbon Dioxide Level 33 mmol/L (21-32) Anion Gap 5 (6-14) Blood Urea Nitrogen 16 mg/dL (8-26) Creatinine 0.8 mg/dL (0.7-1.3) Estimated GFR (Cockcroft-Gault) 95.6 BUN/Creatinine Ratio 20 (6-20) Glucose Level 94 mg/dL (70-99) Calcium Level 9.1 mg/dL (8.5-10.1) Total Bilirubin 0.5 mg/dL (0.2-1.0) Aspartate Amino Transf (AST/SGOT) 21 U/L (15-37) Alanine Aminotransferase (ALT/SGPT) 27 U/L (16-63) Alkaline Phosphatase 74 U/L (46-116) Troponin I Quantitative < 0.017 ng/mL (0.000-0.055) Total Protein 6.8 g/dL (6.4-8.2) Albumin 3.5 g/dL (3.4-5.0) Albumin/Globulin Ratio 1.1 (1.0-1.7) Thyroid Stimulating Hormone (TSH) 1.586 uIU/mL (0.358-3.74) Urine Collection Type Unknown Urine Color Yellow Urine Clarity Clear Urine pH 6.5 Urine Specific [place] <=1.005 Urine Protein Negative mg/dL (NEG-TRACE) Urine Glucose (UA) Negative mg/dL (NEG) Urine Ketones (Stick) Negative mg/dL (NEG) Urine Blood Small (NEG) Urine Nitrite Positive (NEG) Urine Bilirubin Negative (NEG) Urine Urobilinogen Dipstick 0.2 mg/dL (0.2 mg/dL) Urine Leukocyte Esterase Large (NEG) Urine RBC 3-5 /HPF (0-2) Urine WBC Tntc /HPF (0-4) Urine Bacteria Many /HPF (0-FEW) VTE Prophylaxis Ordered VTE Prophylaxis Devices: Yes VTE Pharmacological Prophylaxi: Yes Assessment/Plan Assessment/Plan 1. Mental status change - feels patient is at his baseline, continue to monitor. 2. probable UTI - continue Rocephin and await culture report. No evidence of sepsis at this time. 3. bradycardia - patient does not appear symptomatic from this. Heart rate was mildly low on his last few office visits also. Has been seen by Dr Worthy who does not recommend further treatment at this time as patient is without symptoms and is very inactive. Continue to follow on Telemetry. TSH is WNL. 4. seizure disorder - appears stable. Continue Keppra and check level on lab. 5. s/p CVA with hemiparesis - at baseline, continue supportive care. BLAKE COOPER MD Nov 13, 2016 11:11
[2016-11-13] MEDS: levETIRAcetam 500 MG TABLET PO SCH ×2 (11:18→20:59)
--- NOTE | 2016-11-13 12:16 | EKG ---
[facility] [address] [place] [address] Test Date: 2016-11-12 Test Time: 16:12:25 Pat Name: MELIZA US Department: Room: Gender: M [employer] Manager: : 1945 Requested By: JH MAR Order Number: [id number] Reading MD: Measurements Intervals [place] Rate: 46 P: TX: QRS: 17 QRSD: 138 T: 8 QT: 494 QTc: 433 Interpretive Statements ATRIAL FIBRILLATION NON SPECIFIC INTRAVENTRICULAR BLOCK QRS(T) CONTOUR ABNORMALITY CONSIDER ANTEROSEPTAL MYOCARDIAL DAMAGE RI6.01 Unconfirmed report No previous ECG available for comparison
[2016-11-13] MEDS ORDERED: LORazepam 0.5 MG TABLET PO PRN (14:45)
[2016-11-13] MEDS ORDERED: HALOPERIDOL LACTATE 5 MG/ML VIAL. IVP PRN (15:30)
[2016-11-13 19:00] VITALS: BP 160/62
[2016-11-13 23:00] VITALS: BP 157/62
[2016-11-14 03:00] VITALS: BP 151/66
--- NOTE | 2016-11-14 05:33 | ACF ---
Admission Forms Criteria TELEMETRY CARE Telemetry Admission Guidelines (Place 'X' for any and all applicable criteria): Admission to telemetry [A] may be indicated for ANY ONE of the following(1)(2)(3 )(4)(5): [X]I. Cardiac disease, including ANY ONE of the following (9)(10)(11)(12)(13 ): [ ]a) Postacute NE [ ]b) Low-risk patients with ST-segment elevation NE who have undergone successful percutaneous coronary intervention [ ]c) Unstable angina [ ]d) Suspected NE (until it is ruled out) [ ]e) Post cardiac surgery (first 48 to 72 hours unless complications occur) [X]f) Acute arrhythmias (including significant tachycardia or bradycardia) [B] [ ]g) Firing of an implantable cardioverter defibrillator [C] [ ]h) Suspected pacemaker or implantable cardioverter defibrillator malfunction (10) [ ]i) New administration or adjustment of an antiarrhythmic drug [D ] [ ]j) Child admitted for acute congestive heart failure [ ]j) Long QT syndrome [ ]k) Advanced heart block (eg, second-degree Mobitz type II, third- degree heart block) [ ]l) Acute myocarditis or pericarditis [ ]m) Short-term (ambulatory or inpatient) monitoring after a cardiac procedure as indicated by ANY ONE of the following [E]: [ ]i) Electrophysiologic studies [ ]ii) Percutaneous coronary intervention with stent placement [ ]iii) Pacemaker placement with cardiac conduction defect [ ]iv) Implantable cardiac defibrillator placement [ ]II. Drug overdose or poisoning with substance that causes arrhythmias or QT prolongation (eg, phenothiazines, sympathomimetic agents, cyclic antidepressants, digitalis, antiarrhythmic drugs)(15) [ ]III. Short-term (ambulatory or inpatient) monitoring after therapeutic or diagnostic procedure requiring conscious sedation or anesthesia (eg, endoscopy, elective cardioversion) [ ]IV. Acute cerebrovascular even[F](18) [ ]V. Massive blood transfusion (eg, at least 10 units of packed red blood cells in 24 hours) [ ]. Variceal bleeding after endoscopy, sclerotherapy, or IV vasopressin [ ]VII. Uncorrected electrolyte abnormalities associated with an increased risk of dangerous arrhythmia [G]; examples include [ ]a) Hyperkalemia with attributable ECG changes [ ]b) Potassium greater than 6.5 mmol/L (mEq/L) in a patient without history of chronic renal disease [ ]c) Prolonged QT attributed to hypokalemia, hypomagnesemia, or hypocalcemia [ ]VIII.Unexplained syncope or other neurologic event suspected of being due to arrhythmia due to a finding that increases risk; examples include(19)(20)(21): [ ]a) High-risk ECG findings (eg, bifascicular block, bradycardia, abnormal QT interval, ventricular pre- excitation) [ ]b) History of previous syncope due to arrhythmia [ ]c) Abnormal ventricular function (eg, reduced ejection fraction ) [ ]d) Exertional or supine syncope [ ]e) Concerning syncope characteristics (eg, sudden loss of consciousness without prodrome) [ ]f) Family history of sudden [ ]g) Use of arrhythmogenic medication [ ]h) Suspected cardiac ischemia [ ]i) Known channelopathy (eg, long QT syndrome, Brugada syndrome, or catecholaminergic paroxysmal ventricular tachycardia) [ ]j) Known structural heart disease (eg, hypertrophic cardiomyopathy , severe valvular disease) [ ]k) Palpitations preceding syncope The original Rev content created by Rev has been revised. The portions of the content which have been revised are identified through the use of italic text or in bold, and [facility] has neither reviewed nor approved the modified material. All other unmodified content is copyright Rev. Please see references footnoted in the original Rev edition 2015 Admission Criteria Met?: Yes DEBBIE FELIX Nov 14, 2016 05:33
[2016-11-14 07:00] VITALS: BP 180/75
[2016-11-14 08:00] VITALS: BP 167/75
[2016-11-14] MEDS: levETIRAcetam 500 MG TABLET PO SCH (09:10)
[2016-11-14 10:19] VITALS: BP 158/67
[2016-11-14] MEDS ORDERED: CIPR500T94 PO (12:32)
== END 2016-11-14 14:49 | disposition home or self-care (01) | DRG 689 ==
LOC: ER 15:25 → 5 NORTH 20:00
PROVIDERS: ADMIT Family Medicine; ATTEND Family Medicine
DX: N39.0 Urinary tract infection, site not specified (principal); G93.41 Metabolic encephalopathy; I69.351 Hemiplegia and hemiparesis following cerebral infarction affecting right dominant side; F02.80 Dementia in other diseases classified elsewhere, unspecified severity, without behavioral disturbance, psychotic disturbance, mood disturbance, and anxiety; G30.9 Alzheimer's disease, unspecified; F32.9 Major depressive disorder, single episode, unspecified; R00.1 Bradycardia, unspecified; G40.909 Epilepsy, unspecified, not intractable, without status epilepticus; I69.320 Aphasia following cerebral infarction; Z87.440 Personal history of urinary (tract) infections; Z90.49 Acquired absence of other specified parts of digestive tract; Z91.041 Radiographic dye allergy status; Z93.1 Gastrostomy status
CPT/HCPCS: 36415; 70450; 71010; 80053; 81001; 84443; 84484; 85027; 87086; 87186; 93005; 96361; 96374; J0690; J0696; J1630; J2060; J7030; J7040; 99285-25

== ENCOUNTER 2020-10-26 12:16 | Emergency (ER) | payer MEDICARE, OTHER ==
[~2020-10-26] VITALS: Ht 167.6 cm; Wt 120.0 kg
[~2020-10-26 12:16] MED LIST changes: +ASPI325T8 PO; -CIPR500T PO; +CIPR500T2 PO; +LEVO500T59 PO; +MECL-75 PO; -MECL25TA3 PO; +SERT25TA PO
[2020-10-26 13:46] VITALS: BP 161/83
== END 2020-10-26 15:53 | disposition left against medical advice (07) ==
LOC: ER 12:16
DX: R21 Rash and other nonspecific skin eruption (principal); Z53.21 Procedure and treatment not carried out due to patient leaving prior to being seen by health care provider

== ENCOUNTER 2020-11-05 08:26 | Emergency (ER) | payer MEDICARE, OTHER ==
[~2020-11-05] VITALS: Ht 172.7 cm; Wt 113.0 kg
--- NOTE | 2020-11-05 08:56 | ED.ADGEN ---
Past Medical History Past Medical History: CVA, Seizure Additional Past Medical Histor: CVA 2010, SPINE FRACTURE Past Surgical History: No Surgical History Additional Past Surgical Histo: PEG TUBE s/p removal Smoking Status: Never Smoker Alcohol Use: None Drug Use: None General Adult EDM: Chief Complaint: ABDOMINAL PAIN HPI: HPI: Patient is a 75 year old male coming in via EMS for abdominal pain. Pain started about 40 minutes prior to arrival. Patient's provided most of the history due to difficulty with speech after a stroke. She states that he had a very large bowel movement about 5 AM. Patient has history of constipation and has to take a laxative. Typically has a bowel movement every 3 days. No other complaints. Review of Systems: Review of Systems: All other systems within normal limits except for as noted in the HPI Current Medications: Current Medications Medications (Trade) Dose Ordered Sig/Mackenzie Start Time Stop Time Status Last Admin Dose Admin Multi-Ingredient Mouthwash/Gargle (Gi Cocktail) 20 ml 1X ONCE 11/05/20 10:15 11/05/20 10:16 Potassium Chloride (Klor-Con) 40 meq 1X ONCE 11/05/20 10:15 11/05/20 10:16 Allergies: Allergies: Allergies Coded Allergies Type Severity Reaction Last Updated Verified iodine Allergy Severe IV IODINE CAUSED A SEIZURE 02/01/16 Yes Physical Exam: PE: Constitutional: Well developed, well nourished, no acute distress, non-toxic appearance. [] HENT: Normocephalic, atraumatic, bilateral external ears normal, nose normal. [] Eyes: PERRLA, conjunctiva normal, no discharge. [] Neck: No rigidity, supple, no stridor. [] Cardiovascular: Regular rate and rhythm, brisk cap refill [] Lungs & Thorax: Non labored symmetric respirations, no tachypnea or respiratory distress [] Abdomen: Soft, nondistended, epigastric tenderness without guarding or rebound. Skin: Warm, dry, no erythema, no rash. [] Back: Unremarkable Extremities: No deformities, range of motion grossly intact, no lower extremity edema [] Neurologic: Alert and oriented X 2 Psychologic: Affect normal, judgement normal, mood normal. [] Current Patient Data: Labs: Laboratory Tests Test 11/05/20 09:05 White Blood Count 9.0 x10^3/uL (4.0-11.0) Red Blood Count 4.51 x10^6/uL (4.30-5.70) Hemoglobin 13.4 g/dL (13.0-17.5) Hematocrit 39.5 % (39.0-53.0) Mean Corpuscular Volume 88 fL (79-100) Mean Corpuscular Hemoglobin 30 pg (25-35) Mean Corpuscular Hemoglobin Concent 34 g/dL (31-37) Red Cell Distribution Width 14.9 % (11.5-14.5) H Platelet Count 146 x10^3/uL (140-400) Neutrophils (%) (Auto) 75 % (31-73) H Lymphocytes (%) (Auto) 18 % (24-48) L Monocytes (%) (Auto) 6 % (0-9) Eosinophils (%) (Auto) 0 % (0-3) Basophils (%) (Auto) 0 % (0-3) Neutrophils # (Auto) 6.8 x10^3/uL (1.8-7.7) Lymphocytes # (Auto) 1.7 x10^3/uL (1.0-4.8) Monocytes # (Auto) 0.6 x10^3/uL (0.0-1.1) Eosinophils # (Auto) 0.0 x10^3/uL (0.0-0.7) Basophils # (Auto) 0.0 x10^3/uL (0.0-0.2) Sodium Level 142 mmol/L (136-145) Potassium Level 2.8 mmol/L (3.5-5.1) *L Chloride Level 103 mmol/L (98-107) Carbon Dioxide Level 30 mmol/L (21-32) Anion Gap 9 (6-14) Blood Urea Nitrogen 19 mg/dL (8-26) Creatinine 0.8 mg/dL (0.7-1.3) Estimated GFR (Cockcroft-Gault) 94.5 BUN/Creatinine Ratio 24 (6-20) H Glucose Level 87 mg/dL (70-99) Calcium Level 8.5 mg/dL (8.5-10.1) Total Bilirubin 0.7 mg/dL (0.2-1.0) Aspartate Amino Transferase (AST) 18 U/L (15-37) Alanine Aminotransferase (ALT) 42 U/L (16-63) Alkaline Phosphatase 82 U/L (46-116) Troponin I Quantitative < 0.017 ng/mL (0.000-0.055) Total Protein 6.3 g/dL (6.4-8.2) L Albumin 3.6 g/dL (3.4-5.0) Albumin/Globulin Ratio 1.3 (1.0-1.7) Lipase 103 U/L (73-393) Laboratory Tests 11/05/20 09:05 Laboratory Tests 11/05/20 09:05 Vital Signs: Vital Signs Date Time Temp Pulse Resp B/P (MAP) Pulse Ox O2 Delivery O2 Flow Rate FiO2 11/05/20 08:34 97.9 51 18 187/86 (119) 97 Room Air 97.9 EKG: EKG: Sinus rhythm, heart 50 bpm, left axis deviation, right bundle branch block, no ST elevation or depression. [] Heart Score: C/O Chest Pain: No Risk Factors: Risk Factors: DM, Current or recent (<one month) smoker, HTN, HLP, family history of CAD, obesity. Risk Scores: Score 0 - 3: 2.5% MACE over next 6 weeks - Discharge Home Score 4 - 6: 20.3% MACE over next 6 weeks - Admit for Clinical Observation Score 7 - 10: 72.7% MACE over next 6 weeks - Early Invasive Strategies Radiology/Procedures: Radiology/Procedures: [] Course & Med Decision Making: Course & Med Decision Making Patient is unable to void on command, incontinent of urine. Has severe phimosis and unable to pass cath. Urine in his briefs is foul smelling. Concern for urinary tract infection. Dragon Disclaimer: Dragon Disclaimer: This electronic medical record was generated, in whole or in part, using a voice recognition dictation system. Departure Departure Impression: Primary Impression: UTI (lower urinary tract infection) Additional Impressions: Abdominal pain Hypokalemia Disposition: 01 HOME / SELF CARE / HOMELESS Condition: STABLE Referrals: JH OBREGON MD (PCP) Patient Instructions: Hypokalemia Scripts Ciprofloxacin Hcl (CIPRO) 250 Mg Tablet 1 TAB PO BID for infection for 5 Days, #10 TAB Prov: SANDY CUNNINGHAM MD 11/05/20 Potassium Chloride (Klor-Con 10) 10 Meq Tablet.er 10 MEQ PO BID for potassium for 5 Days, #10 TAB.SR Prov: SANDY CUNNINGHAM MD 11/05/20 Problem Qualifiers SANDY CUNNINGHAM MD Nov 05, 2020 08:56
[2020-11-05 09:12] LABS: BASO % 0 % (0-3); EOS % 0 % (0-3); HEMATOCRIT 39.5 % (39.0-53.0); HEMOGLOBIN 13.4 g/dL (13.0-17.5); LYMPH # 1.7 x10^3/uL (1.0-4.8); LYMPH % 18 % (24-48); MEAN CORPUSCULAR HEMOGLOBIN 30 pg (25-35); MEAN CORPUSCULAR HGB CONC 34 g/dL (31-37); MEAN CORPUSCULAR VOLUME 88 fL (79-100); MONO # 0.6 x10^3/uL (0.0-1.1); MONO % 6 % (0-9); NEUT # 6.8 x10^3/uL (1.8-7.7); NEUT % 75 % (31-73); PLATELET COUNT 146 x10^3/uL (140-400); RED BLOOD COUNT 4.51 x10^6/uL (4.30-5.70); RED CELL DISTRIBUTION WIDTH 14.9 % (11.5-14.5)
--- NOTE | 2020-11-05 09:22 | EKG ---
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
[2020-11-05 09:28] LABS: ALBUMIN 3.6 g/dL (3.4-5.0); ALBUMIN/GLOBULIN RATIO 1.3 (1.0-1.7); CALCIUM 8.5 mg/dL (8.5-10.1); CREATININE 0.8 mg/dL (0.7-1.3); GFR 94.5; TOTAL BILIRUBIN 0.7 mg/dL (0.2-1.0); TOTAL PROTEIN 6.3 g/dL (6.4-8.2)
[2020-11-05 09:30] LABS: POTASSIUM 2.8 mmol/L (3.5-5.1)
[2020-11-05 09:40] VITALS: BP 167/72
--- NOTE | 2020-11-05 09:50 | RAD ---
EXAMINATION: CT abdomen and pelvis without IV contrast. INDICATION:75 years, Male, abdominal pain. TECHNIQUE: Axial CT images of the abdomen and pelvis were obtained. Coronal and sagittal reformatted performed. COMPARISON: 07/12/2014. Exposure: One or more of the following individualized dose reduction techniques were utilized for thi s examination: 1. Automated exposure control 2. Adjustment of the mA and/or kV according to patient size 3. Use of iterative reconstruction technique. FINDINGS: LOWER CHEST: Bibasilar subsegmental atelectasis. Trace bilateral pleural effusions. Cardiomegaly. ABDOMEN/PELVIS: Within limitation of noncontrast exam, Liver, biliary ducts, spleen, pancreas, and adrenals are unremarkable. Cholecystectomy. No hydronephr osis or nephrolithiasis in either kidney. No bowel obstruction thickening. Mild aortoiliac atheroscle rotic calcifications without dilation. No abdominopelvic lymphadenopathy by size criteria. No pneumop eritoneum or ascites. Unremarkable urinary bladder. Prostatomegaly indents bladder base, measures 4.8 cm in transverse dimension. Benign-appearing cystic structure in the left hemipelvis abutting urinar y bladder measures 4.2 x 3.8 cm. This cyst is inseparable from left seminal vesicle and distal ureter . It is new since July 2014. MUSCULOSKELETAL: Kyphoplasty changes at L1 vertebral body. Severe multilevel degenerative changes in the spine. Diffus e osteopenia. No acute osseous process. Mild osteoarthritic changes in both hips. IMPRESSION: Within limitation of noncontrast exam, 1. No acute abnormality in the abdomen or pelvis. 2. Benign-appearing 4.2 cm cystic structure in the left hemipelvis abutting urinary bladder and insep arable from the left seminal vesicle and distal ureter, new since 2014. Etiology likely benign with d ifferential includes seminal vesicle cyst, or bladder diverticulum. Electronically signed by: Doug Moreno MD (11/05/2020 9:47 AM) [id number]
[2020-11-05] MEDS ORDERED: LIDO:MAALOX 1:1 20 ML SINGLE DOSE. SWSW ONE (10:15)
[2020-11-05] MEDS ORDERED: POTASSIUM CHLORIDE 20 MEQ TABLET.ER. PO ONE (10:15)
[2020-11-05] MEDS ORDERED: POTA10TA6 PO (10:21)
[2020-11-05] MEDS ORDERED: CIPR250T30 PO (10:21)
== END 2020-11-05 11:25 | disposition home or self-care (01) ==
LOC: ER 08:26
DX: N39.0 Urinary tract infection, site not specified (principal); E87.6 Hypokalemia; R10.13 Epigastric pain; Z86.73 Personal history of transient ischemic attack (TIA), and cerebral infarction without residual deficits; Z88.8 Allergy status to other drugs, medicaments and biological substances
CPT/HCPCS: 36415; 74176; 80053; 83690; 84484; 85025; 93005; 99285-25

== ENCOUNTER 2020-12-18 12:17 | Observation (INO) | payer MEDICARE, OTHER ==
[~2020-12-18] VITALS: Ht 195.6 cm; Wt 85.3 kg
[~2020-12-18 12:17] MED LIST changes: +POTA10TA6 PO
--- NOTE | 2020-12-18 13:08 | PHYS DOC ---
Past Medical History Past Medical History: CVA, Seizure Additional Past Medical Histor: CVA 2010, SPINE FRACTURE Past Surgical History: Other Additional Past Surgical Histo: PEG TUBE s/p removal Smoking Status: Former Smoker Alcohol Use: None Drug Use: None General Adult EDM: Chief Complaint: CHEST PAIN HPI: HPI: Patient is a 75 year old male with history of previous strokes, seizure who pr esents with left-sided chest pain. Started at 10 AM. Described as a dull pressure. Does not radiate. No associated shortness of breath, nausea/vomiting, or diaphoresis. Has never had this pain before. Began at rest while resting in a hospital bed as he typically does. He cannot walk. He had EMS evaluate him and his pain was better after 3 sublingual nitroglycerin. States that it is now a 34/10. He was also given 324 mg of aspirin. Not worse with deep inspiration. Review of Systems: Review of Systems: Constitutional: Denies fever or chills. [] Eyes: Denies change in visual acuity. [] HENT: Denies nasal congestion or sore throat. [] Respiratory: Denies cough or shortness of breath. [] Cardiovascular: Denies chest pain or edema. [] GI: Denies abdominal pain, nausea, vomiting, bloody stools or diarrhea. [] : Denies dysuria. [] Musculoskeletal: Denies back pain or joint pain. [] Integument: Denies rash. [] Neurologic: Denies headache, focal weakness or sensory changes. [] Endocrine: Denies polyuria or polydipsia. [] Lymphatic: Denies swollen glands. [] Psychiatric: Denies depression or anxiety. [] Heart Score: C/O Chest Pain: Yes HEART Score for Chest Pain: HEART Score for Chest Pain Response (Comments) Value History Moderately Suspicious 1 ECG Nonspecific Repolarizatio 1 Age > 65 2 Risk Factors 1 or 2 Risk Factors 1 Total 5 Risk Factors: Risk Factors: DM, Current or recent (<one month) smoker, HTN, HLP, family history of CAD, obesity. Risk Scores: Score 0 - 3: 2.5% MACE over next 6 weeks - Discharge Home Score 4 - 6: 20.3% MACE over next 6 weeks - Admit for Clinical Observation Score 7 - 10: 72.7% MACE over next 6 weeks - Early Invasive Strategies Family History: Family History: No pertinent family history identified Allergies: Allergies: Allergies Coded Allergies Type Severity Reaction Last Updated Verified iodine Allergy Severe IV IODINE CAUSED A SEIZURE 02/01/16 Yes Physical Exam: PE: Constitutional: no acute distress, non-toxic appearance. [] HENT: Normocephalic, atraumatic. [] Eyes: conjunctiva normal, no discharge. [] Neck: Normal range of motion, no tenderness, supple, no stridor. [] Cardiovascular:Heart rate regular rhythm, no murmur [] Lungs & Thorax: Bilateral breath sounds clear to auscultation [] Abdomen: Bowel sounds normal, soft, no tenderness, no masses, no pulsatile masses. [] Skin: Warm, dry, no erythema, no rash. [] Back: No tenderness, no CVA tenderness. [] Extremities: No tenderness, no cyanosis, no clubbing, ROM intact, no edema. [] Neurologic: Alert, oriented x3. Speech garbled and difficult to communicate. At baseline per patient. [] Psychologic: Affect normal, judgement normal, mood normal. [] Current Patient Data: Vital Signs: Vital Signs Date Time Temp Pulse Resp B/P (MAP) Pulse Ox O2 Delivery O2 Flow Rate FiO2 12/18/20 12:40 98.7 50 18 159/60 98 98.7 EKG: EKG: Sinus rhythm. Left axis deviation. Abnormal contour and V2V4 ST segments. No T wave inversion or Q waves identified. No ST depression or ST elevation. No STEMI. [] Radiology/Procedures: Radiology/Procedures: CXR[] Impression: [facility] [address] [place] [address] IMAGING REPORT Signed PATIENT: MARTY BARRETT ACCOUNT: [id number] : 03/29/1926 LOCATION: ER AGE: 89 SEX: F EXAM STATUS: PRE ER ORD. PHYSICIAN: RANDAL SALMON MD REASON: shortness of breath, cough, sputum PROCEDURE: CHEST AP ONLY EXAM: CHEST ONE VIEW. HISTORY: Shortness of breath, cough. COMPARISON: None. FINDINGS: A frontal view of the chest is obtained. There are bilateral interstitial opacities with a basilar predominance. There is no pneumothorax or clear pleural effusion. The heart is moderately enlarged. There are atherosclerotic calcifications of the aorta. IMPRESSION: 1. Mild to moderate pulmonary edema versus atypical pneumonia. Electronically signed by: Moises Majano MD (12/18/2020 1:36 PM) [id number] DICTATED and SIGNED BY: RANDAL MAJANO MD DATE: 12/18/20 [id number] 0 Course & Med Decision Making: Course & Med Decision Making Pertinent Labs and Imaging studies reviewed. (See chart for details) Patient is 75-year-old male who presents with left-sided chest pressure that is been constant since 10 AM. EKG with some nonspecific repolarization abnormalities. HEART score equals 5 prior to first troponin, reflecting his higher risk chest pain. No evidence of PE by vital signs or history. Do not feel he requires PE work-up We will check a chest x-ray for any evidence of pulmonary abnormality. Pain is not consistent with aortic dissection. Will check serial troponins. Will likely require admission for further chest pain work-up. 1307 CXR with atelectasis vs mild infiltrate per rads read. Trop neg. CBC, CMP otherwise reassuring. WIll discuss admission with hospitalist. [address] Disclaimer: Draggu[place]upe Disclaimer: This electronic medical record was generated, in whole or in part, using a voice recognition dictation system. Departure Departure Impression: Primary Impression: Chest pain Disposition: ADMITTED INPATIENT Admitting Physician: GERALD Rabago) Condition: STABLE Referrals: JH OBREGON MD (PCP) RANDAL SALMON MD Dec 18, 2020 13:08
--- NOTE | 2020-12-18 13:29 | RAD ---
EXAM: CHEST ONE VIEW. HISTORY: Chest pain. COMPARISON: 08/12/2017. FINDINGS: A frontal view of the chest is obtained. Opacities in both bases are consistent with atelectasis or mild infiltrate. There is no pneumothorax or pleural effusion. The heart is not enlarged. There are atherosclerotic calcifications of the aorta . IMPRESSION: 1. Bibasilar atelectasis versus mild infiltrate. Electronically signed by: Moises Majano MD (12/18/2020 1:26 PM) [id number]
[2020-12-18 13:46] LABS: CALCIUM 8.8 mg/dL (8.5-10.1); CREATININE 0.9 mg/dL (0.7-1.3); GFR 82.5; POTASSIUM 4.1 mmol/L (3.5-5.1)
[2020-12-18 13:52] LABS: ALBUMIN 3.1 g/dL (3.4-5.0); ALBUMIN/GLOBULIN RATIO 0.9 (1.0-1.7); TOTAL BILIRUBIN 0.4 mg/dL (0.2-1.0); TOTAL PROTEIN 6.4 g/dL (6.4-8.2)
[2020-12-18 14:00] LABS: BASO % 1 % (0-3); EOS % 0 % (0-3); HEMATOCRIT 38.3 % (39.0-53.0); HEMOGLOBIN 12.8 g/dL (13.0-17.5); LYMPH # 1.5 x10^3/uL (1.0-4.8); LYMPH % 24 % (24-48); MEAN CORPUSCULAR HEMOGLOBIN 30 pg (25-35); MEAN CORPUSCULAR HGB CONC 34 g/dL (31-37); MEAN CORPUSCULAR VOLUME 89 fL (79-100); MONO # 0.4 x10^3/uL (0.0-1.1); MONO % 6 % (0-9); NEUT # 4.1 x10^3/uL (1.8-7.7); NEUT % 69 % (31-73); PLATELET COUNT 124 x10^3/uL (140-400); RED BLOOD COUNT 4.29 x10^6/uL (4.30-5.70); RED CELL DISTRIBUTION WIDTH 14.8 % (11.5-14.5)
[2020-12-18 17:00] VITALS: BP 185/83
--- NOTE | 2020-12-18 17:28 | HP ---
ADMIT DATE: 12/18/2020 CHIEF COMPLAINT: Chest pain. HISTORY OF PRESENT ILLNESS: The patient is a pleasant 75-year-old male who presents to the ER with chest pain. He rates it at 6/10. He has associated weakness. It has been occurring for several days. He increased his home meds, that is not working. He did receive 3 sublingual nitros with EMS when they arrived. Pain did decrease. I discussed the case with ER physician. We are going to admit the patient and consult Cardiology. PAST MEDICAL HISTORY: Stroke; expressive aphasia; seizure; spine fracture; PEG tube, status post removal; previous tobacco abuse. ALLERGIES: IODINE. FAMILY HISTORY: Diabetes. SOCIAL HISTORY: He does not drink or take drugs. He is and lives with his . I believe he quit smoking. MEDICATIONS: Reviewed. Please refer to the MRAD. REVIEW OF SYSTEMS: Unable to obtain. He has expressive aphasia. PHYSICAL EXAMINATION: VITALS: Within normal limits and are stable. GENERAL: He is weak. HEENT: Normal cephalic atraumatic, external auditory canals are patent. EYES: Extraocular muscles are intact, pupils are equally round and reactive to light and accommodation. MUSCULOSKELETAL: Well developed, well nourished, good range of motion. ENDOCRINE: No thyromegaly was palpated. LYMPHATICS: No cervical chain or axillary nodes were noted. HEMATOPOIETIC: No bruising. NECK: Supple, no JVD, no thyromegaly was noted. LUNGS: Clear to auscultation in all lung arias without rhonchi or wheezing. HEART: RRR, S1, S2 present. Peripheral pulses intact, no obvious murmurs were noted. ABDOMEN: Soft, nontender. Positive bowel sounds, no organomegaly, normal bowel sounds. EXTREMITIES: Without any cyanosis, clubbing, or edema. Pedal pulses intact, Homans sign is negative. NEUROLOGIC: He has expressive aphasia and has right-sided weakness. PSYCHIATRIC: He is depressed and anxious. SKIN: No ulcerations or rashes, good skin turgor, no jaundice. VASCULAR: Good capillary refill, neurovascular bundle appears to be intact. LABORATORY DATA: Hemoglobin is 12.8. Troponin is 0. COVID testing negative. ASSESSMENT AND PLAN: Chest pain, rule out coronary artery disease. The patient has been admitted. We will check serial enzymes, serial EKGs, cardiac monitoring. Home meds. DVT prophylaxis. Full code. NKC/ANTONELLA DR: Elicia TID: [id number]
--- NOTE | 2020-12-18 17:44 | EKG ---
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
[2020-12-18 19:00] VITALS: BP 153/67
--- NOTE | 2020-12-18 19:38 | NUR ---
Admission: Patients at bedside at time of admission. Patient unable to answer admission questions. Patients Yamilet answered all admission questions and provided medication list.
[2020-12-18] MEDS ORDERED: LEVE500T6 PO (19:49)
[2020-12-18] MEDS ORDERED: DOCU-109 PO (19:49)
[2020-12-18] MEDS ORDERED: ASPI-630 PO (19:49)
[2020-12-18] MEDS: levETIRAcetam 500 MG TABLET PO SCH (20:38)
[2020-12-18 23:00] VITALS: BP 151/71
[2020-12-19 02:53] VITALS: BP 162/69
[2020-12-19 07:00] VITALS: BP 142/94
[2020-12-19] MEDS ORDERED: ASPIRIN CHEWABLE 81 MG TABLET. PO SCH (09:00)
[2020-12-19] MEDS ORDERED: DOCUSATE SODIUM 100 MG CAPSULE. PO SCH (09:00)
[2020-12-19] MEDS: levETIRAcetam 500 MG TABLET PO SCH (10:07)
[2020-12-19 10:56] VITALS: BP 157/73
--- NOTE | 2020-12-19 11:17 | SNU/HH DC ---
DISCHARGE WITH HOME HEALTH DISCHARGE INFORMATION: Final Diagnosis: Problems Medical Problems: (1) Chest pain Status: Acute Condition on Discharge: Stable CODE STATUS: Code Status: Full HOME HEALTH: Face to Face: I certify this patient is under my care and that I, or a nurse practitioner or physician's assistant manager quality management working with me, had a face to face encounter that meets the physician face to face encounter requirements with this patient on []. Medical Complications: CVA, Other (Resolving chest pain) Mcfp For: Assess Cardiopulm Status RN For Eval/Treatment: Yes Physical Therapy For: Evalulation/Treatment Occupational Therapy For: Evaluation/Treatment Speech Language Pathology For: Evaluation/Treatment Home Health Aide For: Self-care [employer]ANT SUPERVISOR For: Community Resources Pt Meets Homebound Status: Poor coordination w/ amb. POST DISCHARGE ORDERS: Activity Instructions for Disc: Activity as tolerated Weight Bearing Status after Di: Full weight bearing, As tolerated DIET AFTER DISCHARGE: Cardiac TREATMENT/EQUIPMENT ORDERS: Adaptive Equipment Issued: Wheelchair CERTIFICATION STATEMENT: Certification Statement: Certification Statement: Based on the above finding, I certify that this patient is confined to the home and needs intermittent long term care, physical therapy and/or speech therapy, or continues to need occupational therapy.~ This patient is under my care, and I have initiated the establishment of the plan of care.~ This patient will be followed by myself or a community physician who will periodically review the plan of care. Home Meds Reported Medications Aspirin (ASPIRIN) 81 Mg Tab.chew, 81 MG PO DAILY for heart health, TAB.CHEW 12/18/20 Docusate Sodium (COLACE) 100 Mg Capsule, 100 MG PO DAILY for constipation, CAP 12/18/20 Levetiracetam (LEVETIRACETAM) 500 Mg Tablet, 500 MG PO BID for seizures, TAB 12/18/20 THOMAS VARELA III DO Dec 19, 2020 11:17
--- NOTE | 2020-12-19 11:23 | PDOC ---
[employer] PROGRESS NOTE Date of Service DOS: DATE: 12/19/20 TIME: 11:18 Chief Complaint Chief Complaint Chest pain History of Present Illness History of Present Illness 12/19/2020 Pt seen and examined Pt has his in the room. She is his trauma manager and answers questions concerning his health. Pt has expressive aphasia and tremors Pt was in NAD and was sitting up in bed D/W RN Chart reviewed The patient is a pleasant 75-year-old male who presents to the ER with chest pain. He rates it at 6/10. He has associated weakness. It has been occurring for several days. He increased his home meds, that is not working. He did receive 3 sublingual nitros with EMS when they arrived. Pain did decrease. I discussed the case with ER physician. We are going to admit the patient and consult Cardiology. Vitals/I&O Vitals/I&O: Vital Signs Date Time Temp Pulse Resp B/P (MAP) Pulse Ox O2 Delivery O2 Flow Rate FiO2 12/19/20 10:56 98.5 56 16 157/73 (101) 98 Room Air 98.5 I & O 12/18/20 12/18/20 12/19/20 15:00 23:00 07:00 Intake Total 200 ml 60 ml Balance 200 ml 60 ml Physical Exam General: Cooperative, No acute distress Heart: Regular rate, Normal S1 Lungs: Clear Abdomen: Normal bowel sounds, Soft Extremities: No cyanosis Skin: No breakdown Labs Labs: Laboratory Tests Test 12/18/20 13:30 12/18/20 15:06 12/18/20 16:00 12/18/20 19:30 White Blood Count 6.0 x10^3/uL (4.0-11.0) Red Blood Count 4.29 x10^6/uL (4.30-5.70) Hemoglobin 12.8 g/dL (13.0-17.5) Hematocrit 38.3 % (39.0-53.0) Mean Corpuscular Volume 89 fL (79-100) Mean Corpuscular Hemoglobin 30 pg (25-35) Mean Corpuscular Hemoglobin Concent 34 g/dL (31-37) Red Cell Distribution Width 14.8 % (11.5-14.5) Platelet Count 124 x10^3/uL (140-400) Neutrophils (%) (Auto) 69 % (31-73) Lymphocytes (%) (Auto) 24 % (24-48) Monocytes (%) (Auto) 6 % (0-9) Eosinophils (%) (Auto) 0 % (0-3) Basophils (%) (Auto) 1 % (0-3) Neutrophils # (Auto) 4.1 x10^3/uL (1.8-7.7) Lymphocytes # (Auto) 1.5 x10^3/uL (1.0-4.8) Monocytes # (Auto) 0.4 x10^3/uL (0.0-1.1) Eosinophils # (Auto) 0.0 x10^3/uL (0.0-0.7) Basophils # (Auto) 0.0 x10^3/uL (0.0-0.2) Sodium Level 141 mmol/L (136-145) Potassium Level 4.1 mmol/L (3.5-5.1) Chloride Level 105 mmol/L (98-107) Carbon Dioxide Level 31 mmol/L (21-32) Anion Gap 5 (6-14) Blood Urea Nitrogen 12 mg/dL (8-26) Creatinine 0.9 mg/dL (0.7-1.3) Estimated GFR (Cockcroft-Gault) 82.5 BUN/Creatinine Ratio 13 (6-20) Glucose Level 93 mg/dL (70-99) Calcium Level 8.8 mg/dL (8.5-10.1) Total Bilirubin 0.4 mg/dL (0.2-1.0) Aspartate Amino Transf (AST/SGOT) 22 U/L (15-37) Alanine Aminotransferase (ALT/SGPT) 26 U/L (16-63) Alkaline Phosphatase 89 U/L (46-116) Troponin I Quantitative < 0.017 ng/mL (0.000-0.055) < 0.017 ng/mL (0.000-0.055) < 0.017 ng/mL (0.000-0.055) Total Protein 6.4 g/dL (6.4-8.2) Albumin 3.1 g/dL (3.4-5.0) Albumin/Globulin Ratio 0.9 (1.0-1.7) SARS-CoV-2 RNA (YONATAN) Negative (Negative) SARS-CoV-2 Antigen (Rapid) Negative (NEGATIVE) Review of Systems Review of Systems: Pt has no N/V Pt has paralysis on right side of body Assessment and Plan Assessmemt and Plan 12/19/2020 Assessment: Chest Pain Stroke Expressive aphasia Seizure Spine fracture PEG tube, status post removal Previous tobacco abuse. Plan: Probable D/C today Home Rx Cardiac monitoring DVT prophylaxis Problems Medical Problems: (1) Chest pain Status: Acute Comment Review of Relevant I have reviewed the following items sofi (where applicable) has been applied. Medications: Current Medications Medications (Trade) Dose Ordered Sig/Mackenzie Route PRN Reason Start Time Stop Time Status Last Admin Dose Admin Aspirin (Aspirin Chewable) 81 mg DAILY PO 12/19/20 09:00 12/19/20 10:08 Docusate Sodium (Colace) 100 mg DAILY PO 12/19/20 09:00 12/19/20 10:08 Levetiracetam (Keppra) 500 mg BID PO 12/18/20 21:00 12/19/20 10:07 Justifications for Admission Other Justification THOMAS VARELA III DO Dec 19, 2020 11:23
--- NOTE | 2020-12-19 12:12 | DS ---
DATE OF DISCHARGE: 12/19/2020 ADMITTING DIAGNOSIS: Chest pain. DISCHARGE DIAGNOSES: Resolving atypical chest pain, history of stroke, expressive aphasia, previous history of PEG that has been removed, hypertension, previous tobacco abuse. CONSULTS: Cardiology. PROCEDURES: None. HOSPITAL COURSE: The patient is a pleasant middle-aged male who has expressive aphasia from a stroke. 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 Basically, he presented with chest pain. We admitted him, did serial enzymes, serial EKGs. He has consult with Cardiology. Clinically, he is doing better. I saw and examined him this morning. He wants to go home. His wants to get him home. If okay with Cardiology, we plan to discharge him to home. DISPOSITION: Home. ACTIVITY: As tolerated. DIET: Low sodium. DISCHARGE MEDICATIONS: Please see MRAD. Other medications we have got aspirin 81 a day, docusate and then Keppra 500 b.i.d. TOTAL TIME: [address]: Elicia TID: [id number]
--- NOTE | 2020-12-19 14:55 | PDOC2 ---
CONSULT Date of Consult Date of Consult DATE: 12/19/20 TIME: 14:50 Reason for Consult Reason for Consult: Chest pain. Referring Physician Referring Physician: Dr. Caba. Identification/Chief Complaint Chief Complaint Chest pain. Source Source: Chart review, Patient History of Present Illness Reason for Visit: The patient is a 75-year-old male with a history of a CVA and a seizure disorder who was admitted through the emergency room yesterday for episodes of chest pressure. Patient reports this is a dull type pressure. There was a no associated shortness of breath. There was no nausea or vomiting. His pain did not change with motion or positioning. His initial EKG showed a sinus rhythm with no acute ischemic changes. Chest x-ray showed mild bibasilar atelectasis versus a mild infiltrate. His troponins have been normal x3. This morning the patient is pain-free. Reports minimal shortness of breath. He is comfortable. Past Medical History Cardiovascular: HTN Pulmonary: Other CENTRAL NERVOUS SYSTEM: CVA, Dementia, Seizure GI: No pertinent hx Heme/Onc: Other Psych: Depression Musculoskeletal: low back pain, Osteoarthritis Renal/: UTI, Urinary Incontinence, Other Past Surgical History Past Surgical History: Appendectomy, Cholecystectomy, Tonsillectomy, Other (Previous PEG tube.) Family History Family History: Diabetes, Hypertension Social History Quit ALCOHOL: none Drugs: None Lives: with Family Current Problem List Problem List Problems Medical Problems: (1) Chest pain Status: Acute Current Medications Current Medications Current Medications Aspirin (Aspirin Chewable) 81 mg DAILY PO Last administered on 12/19/20at 10:08; Start 12/19/20 at 09:00 Docusate Sodium (Colace) 100 mg DAILY PO Last administered on 12/19/20at 10:08; Start 12/19/20 at 09:00 Levetiracetam (Keppra) 500 mg BID PO Last administered on 12/19/20at 10:07; Start 12/18/20 at 21:00 Active Scripts Active Reported Aspirin 81 Mg Tab.chew 81 Mg PO DAILY Colace (Docusate Sodium) 100 Mg Capsule 100 Mg PO DAILY Levetiracetam 500 Mg Tablet 500 Mg PO BID Allergies Allergies: Coded Allergies: iodine (Verified Allergy, Severe, IV IODINE CAUSED A SEIZURE, 02/01/16) ROS Cardiovascular: yes Chest Pain Physical Exam General: No acute distress HEENT: Atraumatic Lungs: Clear to auscultation Heart: Regular rate Abdomen: Normal bowel sounds Vitals VITALS Vital Signs Date Time Temp Pulse Resp B/P (MAP) Pulse Ox O2 Delivery O2 Flow Rate FiO2 12/19/20 10:56 98.5 56 16 157/73 (101) 98 Room Air 98.5 Labs Labs Laboratory Tests Test 12/18/20 13:30 12/18/20 15:06 12/18/20 16:00 12/18/20 19:30 White Blood Count 6.0 x10^3/uL (4.0-11.0) Red Blood Count 4.29 x10^6/uL (4.30-5.70) Hemoglobin 12.8 g/dL (13.0-17.5) Hematocrit 38.3 % (39.0-53.0) Mean Corpuscular Volume 89 fL (79-100) Mean Corpuscular Hemoglobin 30 pg (25-35) Mean Corpuscular Hemoglobin Concent 34 g/dL (31-37) Red Cell Distribution Width 14.8 % (11.5-14.5) Platelet Count 124 x10^3/uL (140-400) Neutrophils (%) (Auto) 69 % (31-73) Lymphocytes (%) (Auto) 24 % (24-48) Monocytes (%) (Auto) 6 % (0-9) Eosinophils (%) (Auto) 0 % (0-3) Basophils (%) (Auto) 1 % (0-3) Neutrophils # (Auto) 4.1 x10^3/uL (1.8-7.7) Lymphocytes # (Auto) 1.5 x10^3/uL (1.0-4.8) Monocytes # (Auto) 0.4 x10^3/uL (0.0-1.1) Eosinophils # (Auto) 0.0 x10^3/uL (0.0-0.7) Basophils # (Auto) 0.0 x10^3/uL (0.0-0.2) Sodium Level 141 mmol/L (136-145) Potassium Level 4.1 mmol/L (3.5-5.1) Chloride Level 105 mmol/L (98-107) Carbon Dioxide Level 31 mmol/L (21-32) Anion Gap 5 (6-14) Blood Urea Nitrogen 12 mg/dL (8-26) Creatinine 0.9 mg/dL (0.7-1.3) Estimated GFR (Cockcroft-Gault) 82.5 BUN/Creatinine Ratio 13 (6-20) Glucose Level 93 mg/dL (70-99) Calcium Level 8.8 mg/dL (8.5-10.1) Total Bilirubin 0.4 mg/dL (0.2-1.0) Aspartate Amino Transf (AST/SGOT) 22 U/L (15-37) Alanine Aminotransferase (ALT/SGPT) 26 U/L (16-63) Alkaline Phosphatase 89 U/L (46-116) Troponin I Quantitative < 0.017 ng/mL (0.000-0.055) < 0.017 ng/mL (0.000-0.055) < 0.017 ng/mL (0.000-0.055) Total Protein 6.4 g/dL (6.4-8.2) Albumin 3.1 g/dL (3.4-5.0) Albumin/Globulin Ratio 0.9 (1.0-1.7) SARS-CoV-2 RNA (YONATAN) Negative (Negative) SARS-CoV-2 Antigen (Rapid) Negative (NEGATIVE) Laboratory Tests Test 12/18/20 15:06 12/18/20 16:00 12/18/20 19:30 Troponin I Quantitative < 0.017 ng/mL (0.000-0.055) < 0.017 ng/mL (0.000-0.055) SARS-CoV-2 RNA (YONATAN) Negative (Negative) SARS-CoV-2 Antigen (Rapid) Negative (NEGATIVE) Images Images Chest x-ray with bibasilar atelectasis versus mild infiltrates. Assessment/Plan Assessment/Plan 1. Chest discomfort. Discomfort has resolved. Patient had no acute ischemic EKG changes. Troponin has been negative x3. After discussion with his family he appears stable. We'll continue present treatments and consider an outpatient work-up. We will call the patient to schedule follow-up. 2. History of a CVA and seizures. Patient had no recent seizures. He is clinically stable. He is now comfortable in bed. 3. Borderline hypertension. Now controlled. Would continue present treatment. MESFIN MAURICIO MD Dec 19, 2020 14:55
--- NOTE | 2020-12-19 15:30 | NUR ---
Discharge Note: MELIZA US [address] Discharge instructions and discharge home medications reviewed with Spouse and a copy given. All questions have been answered and understanding verbalized. The following instructions and handouts were given: chest pain Patient discharged to home with via wheelchair.
== END 2020-12-19 15:30 | disposition home or self-care (01) ==
LOC: ER 12:17 → 6 SOUTH 16:02
PROVIDERS: ADMIT Internal Medicine; ATTEND Internal Medicine
DX: R07.89 Other chest pain (principal); Z20.822 Contact with and (suspected) exposure to COVID-19; F03.90 Unspecified dementia, unspecified severity, without behavioral disturbance, psychotic disturbance, mood disturbance, and anxiety; G40.909 Epilepsy, unspecified, not intractable, without status epilepticus; I10 Essential (primary) hypertension; I63.9 Cerebral infarction, unspecified; Z82.49 Family history of ischemic heart disease and other diseases of the circulatory system; Z83.3 Family history of diabetes mellitus; Z87.891 Personal history of nicotine dependence; Z93.1 Gastrostomy status; Z86.73 Personal history of transient ischemic attack (TIA), and cerebral infarction without residual deficits
CPT/HCPCS: 36415; 71045; 80053; 84484; 85025; 87426; 93005; 99285; G0378; U0003; U0005; G0379

== ENCOUNTER → 2021-01-21 | Outpatient (CLI) | payer MEDICARE, OTHER ==
[2021-01-14 15:00] VITALS: BP 144/71
[~2021-01-21] MED LIST changes: +AMLO-187 PO; +ASPI-630 PO; +ATOR40TA59 PO; +DOCU-109 PO; +HYDR25CA PO; +LISI-517 PO; +REGADENOSON 0.4 MG/5 ML DISP.SYRIN. IV ONE
--- NOTE | 2021-01-21 14:25 | RAD ---
MR#: [id number] Date of Study: 01/21/2021 Ordering Physician: MESFIN MAURICIO, Referring Physician: BRANDON DEWITT Tech: ARLENE Way APPROVED REPORT Test Type: Pharmacological Stress Nurse/Tech: AUBRIE SKINNER Test Indications: CHEST PAIN Cardiac History: HTN- SEE EMR Medications: SEE EMR Medical History: SEE EMR Resting ECG: SR W/ PVC'S- ARTIFACT NOTED Resting Heart Rate: 72 bpm Resting Blood Pressure: 111/43mmHg Pretest Chest Pain: No chest pain Nurse/Tech Notes S1,S2, LUNGS CTA, DENIED SOA OR CP, VSS. EKG WITH ARTIFACT. Consent: The procedure was explained to the patient in lay terms. Informed consent was witnessed. [place] eout was entered into [employer]. History and Stress Test performed by ARLENE Way Pharm. Details Pharmacologic stress testing was performed using 0.4mg per 5ml of regadenoson given intravenously ove r 7-10 seconds. Stress Symptoms PT DENIED ANY SYMPTOMS OF CHEST PAIN OR SOA. POST EXERCISE Reason for Termination: Infusion complete Max HR: 103 bpm Max Blood Pressure: 117/52mmHg Blood Pressure response to exercise: Normal blood pressure response during stress. Heart Rate response to exercise: WNL Chest Pain: No. Arrhythmia: . SR W/PVC'S- NO SIGNIFICANT CHANGE FROM BASELINE EKG, ARTIFACT MADE STUDY DIFFICULT INTERPRETATION Stress EKG Conclusion: No evidence of stress induced EKG changes. Imaging Protocol IMAGE PROTOCOL: Rest Tc-99m/stress Tc-99m 1 day Rest: Stress: Viability: Radiopharm.Tc99m WdadhnrioUa67p Sestamibi Kznj02iVo 32mCi Duration 15min. 10min. Img Date 01/21/2021 01/21/2021 Rest Admin Site:IV - Right AntecubitalAdministrator:ARLENE Way Stress Admin Site: IV - Right AntecubitalAdministrator: ARLENE Way STRESS DATA End Diast. Vol.84.0mlAv. Heart Rate55.0bpm End Syst. Vol.16.0mlCO Index BSA0.0L/min Myocardial Cabw435.0gEject. Jfbsotgc03.0% Stress Rates Pk. Fill Rate2.53EDV/secLVtime Pk. Fill 213.93msec Pk. Empty Rate3.81ESV/secLVtime Pk. Kozfc263.76msec 1/3 Pk. Fill1.58EDV/sec Stress Scores Regional WT0.00Summed WT2.00 Regional WM0.00Summed WM0.00 The rest and stress images show normal perfusion, normal contraction and thickening. LV Perf. Quant 17 Seg. SSS0.00 17 Seg. SRS0.00 17 Seg. SDS0.00 Stress Defect Extent (% LAD)0.00Rest Defect Extent (% LAD)0.00Rev. Defect Extent (% LAD)0.00 Stress Defect Extent (% LCX) 0.00Rest Defect Extent (% LCX)0.00Rev. Defect Extent (% LCX)0.00 Stress Defect Extent (% RCA)0.00Rest Defect Extent (% RCA)0.00Rev. Defect Extent (% RCA)0.00 Stress Defect Extent (% MALLORY)0.00Rest Defect Extent (% MALLORY)0.00Rev. Defect Extent (% MALLORY)0.00 Other Information Quality:Average Risk Assessment: Low Risk Conclusion 1. No evidence of EKG changes with stress testing. 2. Normal perfusion at stress/rest. 3. Low risk study. 4. EF > 60%. Signed by : Justino Worthy, Electronically Approved : 01/21/2021 14:24:48
== END ==
LOC: NM 08:04
PROVIDERS: ATTEND Internal Medicine Cardiovascular Disease
DX: R07.9 Chest pain, unspecified (principal)
CPT/HCPCS: 78452; 93017; A9500; J2785

== ENCOUNTER 2021-01-24 11:03 | Emergency (ER) | payer MEDICARE, OTHER ==
[~2021-01-24] VITALS: Ht 182.9 cm; Wt 76.0 kg
[~2021-01-24 11:03] MED LIST changes: -HYDR25CA PO; -REGADENOSON 0.4 MG/5 ML DISP.SYRIN. IV ONE
[2021-01-24] MEDS ORDERED: hydrOXYzine 25 MG TABLET PO STA (11:44)
--- NOTE | 2021-01-24 11:49 | PHYS DOC ---
Past Medical History Past Medical History: CVA, Seizure Additional Past Medical Histor: CVA 2010, SPINE FRACTURE Past Surgical History: Other Additional Past Surgical Histo: PEG TUBE s/p removal Smoking Status: Never Smoker Alcohol Use: None Drug Use: None General Adult EDM: Chief Complaint: CHEST PAIN HPI: HPI: 75-year-old male with a history of large stroke with resultant bedbound status, now nonverbal at baseline presents the emergency department complaining of an episode of chest pain that has since resolved on left side of his chest that moves to the right side of his chest for the past several hours that started this morning when he woke up. The patient reports that he feels anxious at this time. His who is also at the bedside helping to provide his history states he gets very anxious lying in the bed and also has anxiety about losing his functional abilities. This contributes to his chest pain episodes many of the times according to her. The patient denies radiation of pain, sweating, shortness of air, nausea, vomiting, palpitations or dizziness. Review of Systems: Review of Systems: Review of systems is otherwise negative except for what was mentioned in the HPI. Heart Score: C/O Chest Pain: Yes HEART Score for Chest Pain: HEART Score for Chest Pain Response (Comments) Value History Slighlty/Non-Suspicious 0 ECG Nonspecific Repolarizatio 1 Age > 65 2 Risk Factors 1 or 2 Risk Factors 1 Troponin < Normal Limit 0 Total 4 Allergies: Allergies: Allergies Coded Allergies Type Severity Reaction Last Updated Verified iodine Allergy Severe IV IODINE CAUSED A SEIZURE 02/01/16 Yes Physical Exam: PE: Constitutional: No acute distress, non-toxic appearance. HENT: Atraumatic, bilateral external ears normal, nose normal. Eyes: Conjunctiva normal, no discharge. Neck: Normal range of motion, supple, no stridor. Cardiovascular: Heart rate regular rhythm. 2+ radial pulses and equal Lungs & Thorax: No respiratory distress, symmetrical expansion. Bilateral breath sounds clear to auscultation Chest wall: No reproducible chest wall tenderness to palpation, no lesions. Abdomen: Soft, no tenderness Skin: Warm, dry. Extremities: No tenderness, no cyanosis, ROM intact, no edema. Neurologic: Alert and oriented to his baseline. Psychologic: Affect normal, judgment normal, mood normal. Current Patient Data: Labs: Laboratory Tests Test 01/24/21 12:19 01/24/21 14:30 White Blood Count 5.9 x10^3/uL (4.0-11.0) Red Blood Count 4.17 x10^6/uL (4.30-5.70) Hemoglobin 12.4 g/dL (13.0-17.5) Hematocrit 37.0 % (39.0-53.0) Mean Corpuscular Volume 89 fL (79-100) Mean Corpuscular Hemoglobin 30 pg (25-35) Mean Corpuscular Hemoglobin Concent 34 g/dL (31-37) Red Cell Distribution Width 14.2 % (11.5-14.5) Platelet Count 125 x10^3/uL (140-400) Neutrophils (%) (Auto) 70 % (31-73) Lymphocytes (%) (Auto) 22 % (24-48) Monocytes (%) (Auto) 7 % (0-9) Eosinophils (%) (Auto) 0 % (0-3) Basophils (%) (Auto) 1 % (0-3) Neutrophils # (Auto) 4.1 x10^3/uL (1.8-7.7) Lymphocytes # (Auto) 1.3 x10^3/uL (1.0-4.8) Monocytes # (Auto) 0.4 x10^3/uL (0.0-1.1) Eosinophils # (Auto) 0.0 x10^3/uL (0.0-0.7) Basophils # (Auto) 0.1 x10^3/uL (0.0-0.2) Sodium Level 142 mmol/L (136-145) Potassium Level 3.8 mmol/L (3.5-5.1) Chloride Level 105 mmol/L (98-107) Carbon Dioxide Level 31 mmol/L (21-32) Anion Gap 6 (6-14) Blood Urea Nitrogen 10 mg/dL (8-26) Creatinine 0.8 mg/dL (0.7-1.3) Estimated GFR (Cockcroft-Gault) 94.5 Glucose Level 105 mg/dL (70-99) Calcium Level 8.6 mg/dL (8.5-10.1) Troponin I Quantitative < 0.017 ng/mL (0.000-0.055) < 0.017 ng/mL (0.000-0.055) RJ-Zip-Y-Type Natriuretic Peptide 130 pg/mL (0-124) Vital Signs: Vital Signs Date Time Temp Pulse Resp B/P (MAP) Pulse Ox O2 Delivery O2 Flow Rate FiO2 01/24/21 11:25 98.3 60 16 143/65 (91) 98 Room Air 98.3 EKG: EKG: Time read: 11:20 AM Normal sinus rhythm rate of 6, right bundle branch block, no STEMI, no ectopic beats, normal axis, normal HI, QRS, and QTc intervals. Impression: Right bundle branch block, no STEMI interpreted by me, Lupis Gill D.O. Radiology/Procedures: Radiology/Procedures: XR CHEST 1V History: Reason: chest pain / Spl. Instructions: / History: Comparison: January 13, 2021 Findings: Low lung volumes. Mild patchy bibasilar opacities. No pleural effusion. No pneumothorax. Unchanged heart size. Impression: 1. Low lung volumes with mild patchy bibasilar opacities, likely atelectasis. Electronically signed by: El Johnston DO (01/24/2021 12:10 PM) Course & Med Decision Making: Course & Med Decision Making I discussed admission and offered admission to the patient and the patient's s pouse, they would prefer to do a 2 set troponin and discharge home if possible. I discussed with them that the patient has a heart score 4 and is high risk given his chest pain. They understood the risks and elected to go home. Second set troponin is negative. The patient did not have chest pain in the emergency department during her observation period. He appears stable, he feels better after the Vistaril, and he is appropriate to go home. Departure Departure Impression: Primary Impression: Anxiety Additional Impression: Chest pain Disposition: 01 HOME / SELF CARE / HOMELESS Condition: STABLE Referrals: JH OBREGON MD (PCP) Patient Instructions: Chest Pain (Nonspecific), [id number] Additional Instructions: You were seen in the emergency department for chest pain. Your exam and testing did not show any acute abnormality that warranted admission today but does not rule out underlying cardiovascular disease. You need to follow up with your primary doctor and/or cardiology for further evaluation. Return to the Emergency Department immediately, day or night, if you have worsening or continued chest pain, shortness of breath, nausea, sweating during chest pain, trouble melanie thing, chest pain with exertion (climbing stairs or walking for example), leg swelling or for any other concerns. Scripts Hydroxyzine Pamoate (VISTARIL) 25 Mg Capsule 25 MG PO PRN TID PRN for ANXIETY for 10 Days, #30 CAP Prov: LUPIS GILL DO 01/24/21 LUPIS GILL DO Jan 24, 2021 11:49
--- NOTE | 2021-01-24 12:13 | RAD ---
XR CHEST 1V History: Reason: chest pain / Spl. Instructions: / History: Comparison: January 13, 2021 Findings: Low lung volumes. Mild patchy bibasilar opacities. No pleural effusion. No pneumothorax. Unchanged he art size. Impression: 1. Low lung volumes with mild patchy bibasilar opacities, likely atelectasis. Electronically signed by: El Johnston DO (01/24/2021 12:10 PM) [facility]
[2021-01-24 12:46] LABS: BASO # 0.1 x10^3/uL (0.0-0.2); BASO % 1 % (0-3); EOS % 0 % (0-3); HEMOGLOBIN 12.4 g/dL (13.0-17.5); LYMPH # 1.3 x10^3/uL (1.0-4.8); LYMPH % 22 % (24-48); MEAN CORPUSCULAR HEMOGLOBIN 30 pg (25-35); MEAN CORPUSCULAR HGB CONC 34 g/dL (31-37); MEAN CORPUSCULAR VOLUME 89 fL (79-100); MONO # 0.4 x10^3/uL (0.0-1.1); MONO % 7 % (0-9); NEUT # 4.1 x10^3/uL (1.8-7.7); NEUT % 70 % (31-73); PLATELET COUNT 125 x10^3/uL (140-400); RED BLOOD COUNT 4.17 x10^6/uL (4.30-5.70); RED CELL DISTRIBUTION WIDTH 14.2 % (11.5-14.5); WHITE BLOOD COUNT 5.9 x10^3/uL (4.0-11.0)
[2021-01-24 13:01] LABS: CALCIUM 8.6 mg/dL (8.5-10.1); CREATININE 0.8 mg/dL (0.7-1.3); GFR 94.5; POTASSIUM 3.8 mmol/L (3.5-5.1)
[2021-01-24] MEDS ORDERED: HYDR25CA PO (15:30)
[2021-01-24 16:18] VITALS: BP 156/72
--- NOTE | 2021-01-25 00:26 | EKG ---
[facility] [address] [place] [address] Test Date: 2021-01-24 Test Time: 11:18:34 Pat Name: MELIZA US Department: Room: Gender: M [employer]: : 1945 Requested By: SANDY CUNNINGHAM Order Number: [id number] Reading MD: Measurements Intervals [place] Rate: 60 P: 36 TX: 208 QRS: 26 QRSD: 140 T: 24 QT: 428 QTc: 428 Interpretive Statements SINUS RHYTHM RIGHT BUNDLE BRANCH BLOCK ABNORMAL ECG RI6.02 No previous ECG available for comparison
--- NOTE | 2021-02-10 09:45 | EKG ---
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
== END 2021-01-24 16:40 | disposition home or self-care (01) ==
LOC: ER 11:03
DX: F41.9 Anxiety disorder, unspecified (principal); R07.89 Other chest pain; Z86.73 Personal history of transient ischemic attack (TIA), and cerebral infarction without residual deficits; Z88.8 Allergy status to other drugs, medicaments and biological substances
CPT/HCPCS: 36415; 71045; 80048; 83880; 84484; 85025; 93005; 99285-25

== ENCOUNTER 2021-01-27 22:11 | Emergency (ER) | payer MEDICARE, OTHER ==
[~2021-01-27] VITALS: Ht 182.9 cm; Wt 100.0 kg
[~2021-01-27 22:11] MED LIST changes: +HYDR25CA PO
--- NOTE | 2021-01-27 22:29 | PHYS DOC ---
Past Medical History Past Medical History: CVA, Seizure Additional Past Medical Histor: CVA 2010, SPINE FRACTURE Past Surgical History: Other Additional Past Surgical Histo: PEG TUBE s/p removal Smoking Status: Never Smoker Alcohol Use: None Drug Use: None General Adult EDM: Chief Complaint: CHEST PAIN HPI: HPI: Patient is a 75 year old male with past medical history CVA presents for evalua tion of chest pain. Chest pain across his chest been ongoing for several days. Patient was previously admitted on January 24 and evaluated and subsequently discharged home. Patient states chest pain has never resolved. Patient denies any associated shortness of breath nausea or vomiting. Patient with recent hospitalization--cardiac work-up performed no acute abnormalities. Patient was discharged home on the . Review of Systems: Review of Systems: Constitutional: Denies fever or chills. [] Eyes: Denies change in visual acuity. [] HENT: Denies nasal congestion or sore throat. [] Respiratory: Denies cough or shortness of breath. [] Cardiovascular: Denies chest pain or edema. [] GI: Denies abdominal pain, nausea, vomiting, bloody stools or diarrhea. [] : Denies dysuria. [] Musculoskeletal: Denies back pain or joint pain. [] Integument: Denies rash. [] Neurologic: Denies headache, focal weakness or sensory changes. [] Endocrine: Denies polyuria or polydipsia. [] Lymphatic: Denies swollen glands. [] Psychiatric: Denies depression or anxiety. [] Heart Score: C/O Chest Pain: Yes HEART Score for Chest Pain: HEART Score for Chest Pain Response (Comments) Value History Slighlty/Non-Suspicious 0 ECG Nonspecific Repolarizatio 1 Age > 65 2 Risk Factors 1 or 2 Risk Factors 1 Troponin < Normal Limit 0 Total 4 Risk Factors: Risk Factors: DM, Current or recent (<one month) smoker, HTN, HLP, family history of CAD, obesity. Risk Scores: Score 0 - 3: 2.5% MACE over next 6 weeks - Discharge Home Score 4 - 6: 20.3% MACE over next 6 weeks - Admit for Clinical Observation Score 7 - 10: 72.7% MACE over next 6 weeks - Early Invasive Strategies Allergies: Allergies: Allergies Coded Allergies Type Severity Reaction Last Updated Verified iodine Allergy Severe IV IODINE CAUSED A SEIZURE 9/26/16 Yes Physical Exam: PE: Constitutional: Well developed, well nourished, no acute distress, non-toxic appearance. [] HENT: Normocephalic, atraumatic, bilateral external ears normal, oropharynx moist, no oral exudates, nose normal. [] Eyes: PERRLA, EOMI, conjunctiva normal, no discharge. [] Neck: Normal range of motion, no tenderness, supple, no stridor. [] Cardiovascular:Heart rate regular rhythm, no murmur [] Lungs & Thorax: Bilateral breath sounds clear to auscultation [] Abdomen: Bowel sounds normal, soft, no tenderness, no masses, no pulsatile masses. [] Skin: Warm, dry, no erythema, no rash. [] Back: No tenderness, no CVA tenderness. [] Extremities: No tenderness, no cyanosis, no clubbing, ROM intact, no edema. [] Neurologic: Alert and oriented X 3, normal motor function, normal sensory function, no focal deficits noted. [] Psychologic: Affect normal, judgement normal, mood normal. [] EKG: EKG: Performed at 2220 Rate 69 Sinus rhythm with right bundle branch block No ST elevation No ST depression No acute PA [] Radiology/Procedures: Radiology/Procedures: [] Impression: Exam: Chest one view INDICATION: Chest pain TECHNIQUE: Frontal view of the chest Comparisons: 01/24/2021 FINDINGS: The cardiomediastinal silhouette and pulmonary vessels are within normal limits. The lung and pleural spaces are clear. IMPRESSION: No acute cardiopulmonary process. Course & Med Decision Making: Course & Med Decision Making Pertinent Labs and Imaging studies reviewed. (See chart for details) [] Patient was evaluated for chief complaint. Work-up consisted of laboratory analysis radiologic imaging and EKG. Results reviewed and discussed with patient. concerned about patient's anxiety. I did treat patient with Ativan and states his chest pain greatly improved Patient's EKG without acute ischemic changes patient's troponin within normal limits. Patient will be discharged home with instruction to follow-up with primary care physician Drew Disclaimer: Drew Disclaimer: This electronic medical record was generated, in whole or in part, using a voice recognition dictation system. Departure Departure Impression: Primary Impression: Chest pain Additional Impression: Anxiety Disposition: 01 HOME / SELF CARE / HOMELESS Condition: STABLE Referrals: JH OBREGON MD (PCP) Patient Instructions: Anxiety and Panic Attacks, Chest Pain (Nonspecific) TABITHA SELLERS DO Jan 27, 2021 22:29
--- NOTE | 2021-01-27 23:07 | RAD ---
Exam: Chest one view INDICATION: Chest pain TECHNIQUE: Frontal view of the chest Comparisons: 01/24/2021 FINDINGS: The cardiomediastinal silhouette and pulmonary vessels are within normal limits. The lung and pleural spaces are clear. IMPRESSION: No acute cardiopulmonary process. Electronically signed by: Chastity Joseph MD (01/27/2021 11:04 PM) ZAY
[2021-01-27 23:20] LABS: BASO # 0.1 x10^3/uL (0.0-0.2); BASO % 1 % (0-3); EOS % 0 % (0-3); HEMATOCRIT 36.9 % (39.0-53.0); HEMOGLOBIN 12.4 g/dL (13.0-17.5); LYMPH # 1.9 x10^3/uL (1.0-4.8); LYMPH % 29 % (24-48); MEAN CORPUSCULAR HEMOGLOBIN 30 pg (25-35); MEAN CORPUSCULAR HGB CONC 34 g/dL (31-37); MEAN CORPUSCULAR VOLUME 89 fL (79-100); MONO # 0.5 x10^3/uL (0.0-1.1); MONO % 8 % (0-9); NEUT # 4.1 x10^3/uL (1.8-7.7); NEUT % 63 % (31-73); PLATELET COUNT 150 x10^3/uL (140-400); RED BLOOD COUNT 4.17 x10^6/uL (4.30-5.70); WHITE BLOOD COUNT 6.5 x10^3/uL (4.0-11.0)
[2021-01-27 23:32] LABS: CALCIUM 8.9 mg/dL (8.5-10.1); CREATININE 0.9 mg/dL (0.7-1.3); GFR 82.5; POTASSIUM 3.8 mmol/L (3.5-5.1)
[2021-01-27 23:38] LABS: ALBUMIN 3.3 g/dL (3.4-5.0); TOTAL BILIRUBIN 0.4 mg/dL (0.2-1.0); TOTAL PROTEIN 6.6 g/dL (6.4-8.2)
[2021-01-28 00:30] VITALS: BP 120/65
--- NOTE | 2021-01-28 06:27 | EKG ---
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
== END 2021-01-28 00:36 | disposition home or self-care (01) ==
LOC: ER 22:11
DX: R07.89 Other chest pain (principal); F41.9 Anxiety disorder, unspecified; Z86.73 Personal history of transient ischemic attack (TIA), and cerebral infarction without residual deficits; Z88.8 Allergy status to other drugs, medicaments and biological substances
CPT/HCPCS: 36415; 71045; 80053; 84484; 85025; 93005; 96374; 99285; J2060